=== PATIENT | female | born 1985 | race Caucasian/White ===

== ENCOUNTER 2024-01-09 07:43 | Observation (INO) ==
--- NOTE | 2024-01-05 11:03 | Anesthesiology Consultation ---
Date of Service January 05, 2024 Assessment & Plan (1) Encounter for pre-operative examination: - check EKG, BMP and urine test STAT am DOS. Fluid orders to anesthesiologist review of BMP DOS. - Case discussed in detail with Dr. Bruno who advised ordering EKG for DOS and that nothing additional is needed. - Per rail car operator on 01/05/24: No known infectious disease contacts, current infectious disease symptoms in past 10 days or COVID positive test result in the past 30 days. Chart Review Chart Review: Acceptable Risk for Surgery and Patient NOT seen in Pre Admission Testing History Surgery Operation Date: 01/09/24 11:40 Proposed Procedures p Laparoscopic Total Abdominal Hysterectomy, Bilateral Salpingectomy and Cystoscopy, Possible Laparotomy As Any Indicated Procedure - Wally Blackburn MD Height/Weight Height: 5 ft 4 in Weight: 81.647 kg Allergies Allergy/AdvReac Type Severity Reaction Status Date / Time azithromycin Allergy Unknown Rash Verified 01/05/24 10:19 doxycycline Allergy Unknown Rash Verified 01/05/24 10:19 Macrolide Antibiotics Allergy Unknown Rash Verified 01/05/24 10:19 pantoprazole AdvReac Unknown Vomiting Verified 01/05/24 10:19 Medications Home Medications Medication Instructions Recorded Confirmed Last Taken bupropion HCl 300 mg 24 hr tablet, 300 mg PO QAM 01/05/24 01/05/24 Unknown extended release (Wellbutrin XL) norethindrone acetate 5 mg tablet 5 mg PO QAM 01/05/24 01/05/24 Unknown sertraline 100 mg tablet 100 mg PO QAM 01/05/24 01/05/24 Unknown Past Medical History Medical History (Updated 01/05/24 @ 11:00 by Ginger Mosquera PA-C) Bigeminal rhythm hx- mild, no meds; has seen S cardio in past; discharged from cardio unless has issues Depression with anxiety Hx of reduction of closed fracture arm Past Surgical History Surgical History Hx of tonsillectomy Hx of wisdom tooth extraction Social History Smoking Status: Never smoker Do You Dip or Chew Tobacco: No Hx Alcohol Use: Yes Alcohol type: beer alcohol intake frequency: a few times a month Hx Substance Use: No substance use type: does not use
[~2024-01-09 07:43] MED LIST: MAGNESIUM CITRATE 296 ML/BTL PO SCH
[2024-01-09 08:34] LABS: Est GFR (African American) 89.2 ml/min; Potassium 3.9 mmol/L (3.5-5.1)
[2024-01-09 08:35] LABS: BUN Creatinine Ratio 8.5 (10-20); Creatinine Clr Calc Pharmacy 83.2 ml/min
[2024-01-09] MEDS: LACTATED RINGER'S 1,000 ML IV SCH ×2 (08:45→15:27)
[2024-01-09] MEDS ORDERED: HYDROmorphone INJ 1 MG/ML SYRINGE IV PRN (08:48)
[2024-01-09] MEDS ORDERED: ePHEDrine sulfate 50 MG/ML AMP IV PRN (08:48)
[2024-01-09] MEDS ORDERED: ATROPINE SULFATE 0.1 MG/ML 10ML SYR IV PRN (08:48)
[2024-01-09] MEDS ORDERED: fentaNYL citrate PF 100 MCG/2 ML VIAL IV PRN (08:48)
[2024-01-09] MEDS ORDERED: PROMETHAZINE HCL 6.25 MG in SODIUM CHLORIDE 0.9% 50 ML IV PRN (08:48)
[2024-01-09] MEDS ORDERED: NALOXONE HCL 0.4 MG/1 ML VIAL/CARP IV PRN (08:48)
[2024-01-09] MEDS ORDERED: MIDAZOLAM HCL 1 MG/ML 2ML VIAL ONE (09:29)
[2024-01-09] MEDS ORDERED: HYDROmorphone INJ 2 MG/ML SYR/VIAL ONE (09:29)
--- NOTE | 2024-01-09 10:34 | History & Physical Bridge Note ---
Date of Service January 09, 2024 History & Physical Bridge Note I have examined the patient, reviewed the History & Physical and in the interval since the performance of the History & Physical I have noted the following changes of clinical significance: no changes noted
[2024-01-09] MEDS: ceFAZolin 2000MG 2,000 MG/15 ML SYR IV SCH (11:04)
[2024-01-09] MEDS ORDERED: PROPOFOL IV EMULSION 10 MG/ML 20 ML VIAL IV ONE (11:15)
[2024-01-09] MEDS ORDERED: ONDANSETRON INJ 2 MG/ML 2 ML VIAL ONE (11:15)
[2024-01-09] MEDS ORDERED: LIDOCAINE 2% 2 ML VIAL/AMP(20MG/ML) INFIL ONE (11:15)
[2024-01-09] MEDS ORDERED: KETOROLAC 30 MG/ML VIAL ONE (11:15)
[2024-01-09] MEDS ORDERED: DEXAMETHASONE SOD INJ 4 MG/ML VIAL ONE (11:15)
[2024-01-09] MEDS ORDERED: PHENYLEPHRINE 100MCG/ML 10ML SYR IV ONE (11:29)
[2024-01-09] MEDS ORDERED: ROCURONIUM BROMIDE 10 MG/ML 5 ML VIAL IV ONE (12:14)
[2024-01-09] MEDS ORDERED: SUGAMMADEX SODIUM 200 MG/2 ML VIAL IV ONE (12:26)
[2024-01-09] MEDS: METHYLENE BLUE 0.5% 10 ML VIAL ONE (13:22)
[2024-01-09] MEDS: BUPIVACAINE/EPINEPHRINE 0.5% MPF 1:200,000 30 ML VIAL ONE (13:33)
[2024-01-09] MEDS ORDERED: oxyCODONE/ACETAMINOPHEN 5mg/325mg TAB PO PRN (13:49)
[2024-01-09] MEDS ORDERED: MAGNESIUM HYDROXIDE SUSP 30 ML UDC PO PRN (13:49)
[2024-01-09] MEDS ORDERED: ONDANSETRON INJ 2 MG/ML 2 ML VIAL IV PRN (13:49)
--- NOTE | 2024-01-09 14:03 | Operative Report ---
Post Operative Report Pre & Post Diagnosis Operation Date: 01/09/24 09:20 Pre-Op Diagnosis: Fibroid Uterus Post-Op Diagnosis: Fibroid Uterus I identified the patient and participated in the time-out.: Yes Procedure Operation Date: 01/09/24 09:20 Actual Procedures p Total Laparoscopic Hysterectomy, Bilateral Salpingectomy and Cystoscopy(Not Applicable) - Wally Blackburn MD Surgeon Wally Blackburn MD Inventory Worker Miguel Clark PA-C Estimated Blood Loss 20 Findings Consistent with Post-Op Diagnosis Normal female escutcheon no lesions in the vagina or cervix. Laparoscopic findings however showed uterus of about 10 weeks size there was a large mass coming off the uterus this mass appeared and looks like a fibroid. The large mass occupying the entire pelvics. Both ovaries and fallopian tubes appear grossly normal. Remainder of the pelvic abdominal exam is unremarkable. Fluids IVF; 1500ml Urine 200ml EBL; 20 ml Specimens Uterus with cervix and fluid and fibroids. Left and right fallopian tube. Drains None Anesthesia Type General Complications None Indications 38-year-old with fibroid uterus. Description of Procedure FINDINGS: DESCRIPTION OF PROCEDURE: The patient was prepped and draped in normal sterile fashion in the dorsal lithotomy position. Alexis catheter was placed without difficulty. An ZairgeincCanDiag uterine manipulator was placed in the uterus to help with colpotomy. Attention was paid to the abdominal part of the procedure where a supraumbilical incision was made and carried down to the fascia. Julian was used to grab the fascia. Veress needle was introduced into the abdomen at a 45-degree angle while tenting up the abdomen. Intra-abdominal placement was confirmed with a water-filled syringe. A water drop and suction test was performed. The abdomen was insufflated with CO2 gas. The Veress needle was removed and a 5 mm non bladed trocar was attached to a laparoscope was introduced into the abdomen under direct visualization. This was a non bladed trocar. Once inside the abdomen, laparoscope was repositioned. Inspection of the abdomen shows the fi ndings as dictated above. Three more accessory ports were placed, two 5 mm accessory ports were placed in the lower abdomen on the contralateral side, in addition, an 11 mm trocar was placed on the left upper quadrant. General inspection of the abdomen and pelvis was performed as dictated above. There was an adhesion of omentum to the umbilicus. This omentum was examined. There was no bowel in the omentum, so the LigaSure was passed through one of the contralateral port and dissection of the omentum from the abdominal wall was performed. There was good hemostasis. Left and right fallopian tubes, the ureters, uterosacrals, bowels, appendix were examined and identified. LigaSure was passed through the left accessory port. The fallopian tube was identified and grabbed 4 cm from the cornua of the uterus with the LigaSure and transected. This was followed by opening of the left anterior leaf of the broad ligament. This allowed for fenestration of the posterior left broad ligament. The mid-section of the left fallopian tube, utero-ovarian and meso-ovarian pedicles were transected as well. Same procedure was performed on the contralateral side. The anterior broad ligament dissection was carried to the mid-section of the vesicouterine peritoneum over the bladder using the Harmonic scalpel. Same procedure was carried out on the contralateral side. The posterior broad ligament peritoneum was carefully dissected also from both sides over the uterosacral arch in order to displace the ureters laterally. Using traction and countertraction, the Maryland retractor and irrigation probe was used to further dissect the bladder off the lower segment of the uterus. Bladder pillars and pubovesical fascia was dissected as well. Harmonic scalpel was used to obtain hemostasis where needed. Uterine manipulator was now palpable over the vaginal tissue. The right uterine pedicles were skeletonized and coagulated with the LigaSure. Good hemostasis was obtained. Same procedure was performed on the contralateral side. Cardinal ligaments were transected on both sides. Once good hemostasis was obtained, colpotomy was performed using the LigaSure hook from both sides. Uterus was removed through the vagina while still attached to the uterine manipulator. The rest of the fibroids however was too large to come out in 1 piece. It was dissected in pieces and removed through the vagina. The bulb was attached to the uterine manipulator was reinserted into the vagina to establish pneumoperitoneum. With a grasper, the remaining section of the left ovary and tube were positioned anteromedially. Both fallopian tubes tubes were removed and both ovaries left intactRemoval was done with LigaSure. EndoStitch closure device was passed through the 11 mm port on the left. Using the Maryland grasper for traction, colpotomy closure was performed. The uterosacral ligaments incorporated into the closure in order to decrease the risk of prolapse. Lapro ties were used with the EndoStitch. The 11-mm trocar site was closed with a Tray-Gunderson under direct visualization. Attention was paid to the cystoscopy part of the procedure where a cystoscope was introduced into the bladder. There are no sutures seen in the bladder. There were no gross blood seen in the bladder as well. The bubble sign is noted showing the bladder was a close cavity. Both ureters were seen and there was efflux from both uterus. The skin incisions are closed with Dermabond, except for the 11-mm trocar site, which was closed with 4-0 Monocryl. The patient was returned to recovery in stable condition. Inspection of the vagina shows the vaginal cuff was intact. All instruments were removed from the vagina and the bladder and accounted for x2. I Inventory Worker was necessary for retraction and manipulation of instruments in order to provide for a safe operationattest to the content of the Intraoperative Record and any orders documented therein. Any exceptions are noted below.
--- NOTE | 2024-01-09 14:12 | Anesthesiology Progress Note ---
Date of Service January 09, 2024 Anesthesia Post Procedure Vital Signs Vital Signs: Temp Pulse Pulse Resp BP Pulse Ox O2 Del Method 01/09/24 14:00 110 H 13 112/75 94 Room Air 01/09/24 13:50 106 H 10 L 119/72 95 Room Air 01/09/24 13:40 36.0 C L 109 H 12 115/80 93 Room Air 01/09/24 08:15 37.1 C 94 H 20 141/95 H 97 Room Air Transfer of Care Handoff Completed per policy Notes Mental Status: alert / awake / arousable and participated in evaluation Patient Amnestic to Procedure: Yes Nausea / Vomiting: adequately controlled Pain: adequately controlled Airway Patency, RR, SpO2: stable & adequate BP & HR: stable & adequate Hydration State: stable & adequate Anesthetic Complications: no major complications apparent and Pt Satisfied with anesthetic care
[2024-01-09] MEDS ORDERED: LORazepam 1 MG TAB PO PRN (15:15)
[2024-01-09] MEDS: KETOROLAC 30 MG/ML VIAL IV PRN (15:28)
[2024-01-09] MEDS: LORazepam 1 MG TAB PO STA (15:57)
--- NOTE | 2024-01-09 17:16 | Electrocardiogram Report ---
Test Reason : Blood Pressure : / mmHG Vent. Rate : 085 BPM Atrial Rate : 085 BPM P-R Int : 162 ms QRS Dur : 088 ms QT Int : 366 ms P-R-T Axes : 056 056 043 degrees QTc Int : 435 ms Sinus rhythm with occasional Premature ventricular complexes Possible Left atrial enlargement Borderline ECG No previous ECGs available Confirmed by Emeterio Jordan ([id number]) on 01/09/2024 5:16:05 PM Referred By: Wally Blackburn Confirmed By:Deangelo Jordan
[2024-01-09] MEDS: oxyCODONE/ACETAMINOPHEN 5mg/325mg TAB PO PRN (18:01)
[2024-01-09] MEDS: DOCUSATE SODIUM 100 MG CAP PO SCH (21:01)
--- OUTSIDE RECORDS SUMMARY | 2024-01-10 02:30 | External Medical Summary | Summary of Care ---
Author Name Unknown Organization [facility] Address [address] [place] [address] Phone [phone] Care Team Providers Care Assembler Fluorescent Lights Name Role Phone Unavailable Primary Care Provider Unavailabl e Encounter Details Date Type Department Care Team (Late st Contact Info) Description 01/05/2024 4:15 PM EDT Office Visit Gynecology/Obstetric s Giovanny Fernandez [address] [place] [address] Wally Blackburn MD [address] [place] [address] Preop testing*; Uterine leiomyoma, unspecified location Allergies Active Allergy Reactions Criticality Noted Date Comments Doxycycline Rash 09/16/2019 Macrolides And Ketolides 05/06/2008 rash Pantoprazole 04/27/2018 Itchiness all over, hand swelling documented as of this encounter (statuses as of 01/05/2024) Medications Medication Sig Dispensed Refills Start Date End Date Status fluticasone (FLONASE) 50 MCG/ACT nasal sprayIndications: Acute pharyngitis, unspecified etiology,Viral URI Administer 2 Sprays into each nostril daily. 1 Bottle 11 06/13/2018 Active Multivitamin Adult Oral Tablet Chewable Take by mouth. Active Retin-A 0.025 % External Cream Apply topically to affected area at bedtime. Apply to face 45 g 5 06/06/2022 Active Sertraline HCl 100 MG Oral Tablet (Zoloft)Indicatio ns:Moderate single current episode of major depressive disorder (HCC) Take 1 Tablet by mouth in the morning. 90 Tablet 3 08/14/2023 Active Norethindrone Acetate 5 MG Oral Tablet Take 1 Tablet by mouth in the morning. 90 Tablet 1 09/10/2023 Active buPROPion HCl ER (XL) 300 MG Oral Tablet Extended Release 24 Hour (Wellbutrin XL) Take 1 Tablet by mouth in the morning. 30 Tablet 5 11/20/2023 Active Magnesium Citrate Oral SolutionIndicatio ns:Preop testing Take 296 ml solution 5 PM the night before surgery 300 mL 01/05/2024 Active busPIRone HCl 10 MG Oral Tablet (Buspar)Indicatio ns:Mood changes Take 1 Tablet by mouth in the morning and 1 Tablet before bedtime. 20 Tablet 09/23/2023 01/05/2024 Discontinue d(Medicatio n List Clean Up) Hospital, Clinic, or Other Facility Administered Medication Ordered Dose Route Frequency Start Date End Date Status Leuprolide Acetate (3 Month) (Lupron) inj 11.25 mgIndications:Submuco us leiomyoma of uterus 11.25 mg IM [id number] 09/10/2023 01/05/2024 Discontinued documented as of this encounter (statuses as of 01/05/2024) Active Problems Problem Noted Date Diagnosed Date Acne vulgaris 06/11/2022 Moderate single current epis ode of major depressive disorder 11/22/2016 Chronic rhinitis 06/05/2014 ADVANCE DIRECTIVE INFORMATION 05/03/2005 Overview: No, Advance Directive brochure offered , patient declined. documented as of this encounter (statuses as of 01/05/2024) Resolved Problems Problem Noted Date Diagnosed Date Resolved Date Upper respiratory tract infection 01/29/2022 06/11/2022 Gastroesophageal reflux dise ase without esophagitis 03/16/2015 12/07/2020 Sinus congestion 06/05/2014 06/21/2015 Normal , first 07/08/201102/25 Condyloma acuminatum 014 Adjustment disorder with depressed mood 11/23/2013 documented as of this encounter (statuses as of 01/05/2024) Immunizations Name Administration Dates Next Due COVID-19 mRNA, LNP-s, No Pre serve, 2-Dose Series (ExactCost) 12/20/2020,11/29/2020 HPV Vaccine, 4-Valent 11/18/2007,07/15/2007,04/28 Season Influenza, Cell Cultu re, 18+ Yrs, With Preserv (Flucelvax) 05/09/2014 Seasonal Influenza, PF, 6 M & above, IM , (FluLaval or Fluzone) 07/08/2023,2022,06/08/2021,2019,06/02/2019,04/30/2018,06/26/2017 Seasonal Influenza, Quadriva lent, No Preserve, IM 07/09/2016,06/21/2015 Seasonal Influenza, Split, I IV3, With Preserve, Inj 05/04/2013,05/30/2011,05/11/2010,2006 TD, Preservative Free 06/11/2022 TDAP, Age 7 and older, IM (Adacel) 10/20/2009 documented as of this encounter Social History Tobacco Use Types Packs/Day Years Used Date Smoking Tobacco: Never Smokeless Tobacco: Never Alcohol Use Standard Drinks/Week Comments Yes 0 (1 standard drink = 0.6 oz pur e alcohol) PHQ-2 Answer Date Recorded PHQ Adult Total Score 0 06/11/2022 Hunger Vital Sign Answer Date Recorded Within the past 12 months, y ou worried that your food would run out before you got the money to buy more. Never true 01/27/20 23 Within the past 12 months, t he food you bought just didn't last and you didn't have money to get more. Never true 01/26/2023 Sex and Gender Information Value Date Recorded Sex Assigned at Not on file Gender Identity Not on file Sexual Orientation Not on file Job Start Date Occupation Industry Not on file Not on file Not on file Travel History Travel Start Travel End [employer] 12/27/2023 01/03/2024 documented as of this encounter Last Filed Vital Signs Vital Sign Reading Time Taken Comments Blood Pressure - - Pulse - - Temperature - - Respiratory Rate - - Oxygen Saturation - - Inhaled Oxygen Concentration - - Weight 80.7 kg (178 lb) 01/05/2024 4:18 PM EDT Height 162.6 cm (5' 4") 01/05/2024 4:18 PM EDT Body Mass Index 30.55 01/05/2024 4:18 PM EDT documented in this encounter Progress Notes * Wally Blackburn MD - 01/05/2024 4:53 PM EDT Pt here for preop History and physical examination done Consnet obtained documented in this encounter H&P Notes * Wally Blackburn MD - 01/05/2024 4:46 PM EDT Images from the original note were not included. 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 Denies h/o STDs and abnormal Paps. Her past medical/surgical histories and current medications are recorded in the electronic record. Past Surgical History: Procedure Laterality Date REMOVE TONSILS & ADENOIDS, UNDER 12 age 6 [facility], Family History Problem Relation Name Age of Onset Musculo-skeletal Disorder Mother scoliosis No Past Hx Father Thyroid Disorder Father graves dz Pulmonary Fibrosis Father No Past Hx Brother Diabetes Grandmother (Maternal) Type 2- no insulin Hypertension Grandmother (Maternal) Asthma Grandfather (Maternal) Diabetes Grandfather (Maternal) Type 2- no insulin Hypertension Grandfather (Maternal) Cancer Grandmother (Paternal) unsure of what type No Known Problems Son No Known Problems Son History Social History Socioeconomic History Marital status: Spouse name: Not on file Number of children: 2 Years of education: 12 Highest education level: Not on file Occupational History 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: [employer] Tobacco Use Smoking status: Never Smokeless tobacco: Never Vaping Use Vaping status: Never Used Substance and Sexual Activity Alcohol use: Yes Drug use: No Sexual activity: Yes Partners: Male control/protection: Pill, Condom, Surgical Other Topics Concern Service No Blood Transfusions No Caffeine Concern No Occupational Exposure No Hobby Hazards No Sleep Concern No Stress Concern No Weight Concern No Special Diet No Back Care No Exercise No Bike Helmet Not Asked Seat Belt Yes Self-Exams Yes Social History Narrative born in [place], life long resident Social Determinants of Health Financial Resource Strain: Not on file Food Insecurity: No Food Insecurity (01/26/2023) Hunger Vital Sign Worried About Running Out of Food in the Last Year: Never true Ran Out of Food in the Last Year: Never true Transportation Needs: Not on file Physical Activity: Not on file Stress: Not on file Social Connections: Not on file Intimate Partner Violence: Not on file Housing Stability: Not on file Pelvic sono Exam End Date Exam End Time 11/28/2023 2:56 PM US PELVIS TRANS-ABDOMINAL Order: [id number] Status: Final result Visible to patient: Yes (seen) Next appt: 01/09/2024 at 08:00 AM in Surgery (Wally Blackburn MD) Dx: Submucous leiomyoma of uterus 0 Result Notes Details Reading Physician Reading Date Result Priority Crispin Simms MD [phone] 11/29/2023 Narrative & Impression EXAM US PELVIS TRANS-VAGINAL NON-OB; US PELVIS TRANS-ABDOMINAL - 11/28/2023 2:56 pm HISTORY fibroid f/u TECHNIQUE Real-time transabdominal and transvaginal ultrasound of the pelvis was performed. COMPARISON 08/22/2023. FINDINGS The uterus measures 10 x 3.7 x 4.6 cm and is normal in size and echogenicity. There is a 15.7 x 6.7x 13.6 cm exophytic uterine leiomyoma. The endometrium appears unremarkable and measures 5 mm in thickness. The right ovary measures 2.3 x 1.9 x 2.4 cm and is unremarkable. The left ovary measures 2.4 x 2.1 x 1.8 cm and is unremarkable. There is no free fluid in the cul-de-sac. IMPRESSION IMPRESSION Large exophytic uterine leiomyoma. Physical Exam: Ht 1.626 m (5' 4") | Wt 80.7 kg (178 lb) | BMI 30.55 kg/m | BSA 1.91 m CV: S1, S2. Regular rate and Rhythm Lungs: Clear to auscultation bilaterally. Abdomen: Soft Extremities: Soft non tender calves bilaterally. A/P: 38 year old year old S/P fibroid uterus We have discussed the risk alternatives and complications of surgery including more surgery to correct complication,risk of anesthesia,infection,damage to internal organs and . We have also discussed the possibility that pt's present situation may not change. Pt is aware and wishes to proceed to surgery. Consent is signed Pt scheduled for the ff procedures 1. Total laparoscopic hysterectomy 2. Bilateral salpingectomy 4. Possible laparotomy Wally Blackburn MD 01/05/2024 4:47 PM documented in this encounter Nursing Notes * Arelis Aleman LPN - 01/05/2024 4:14 PM EDT Pt is here for pre-op for hysterectomy documented in this encounter Plan of Treatment Upcoming Encounters Date Type Department Care Team (Late st Contact Info) Description 01/19/2024 3:30 PM EDT Office Visit Gynecology/Obstetrics [address] [place] [address] Wally Blackburn MD [address] [place] [address] Scheduled Orders Name Type Priority Associated Diagnoses Orde r Schedule CBC WITH WBC DIFFERENTIAL Lab Routine Preop testing Ordered: 01/05/2024 COMPREHENSIVE METABOLIC PANEL Lab Routine Preop testing Ordered: 01/05/2024 Health Maintenance Due Date Last Done Comments Hepatitis B (1 of 3 - 19+ 3-dose series) 2004 COVID-19 Vaccine ( - 2022-24 season) 2023 12/20/2020, 11/29/2020 Depression Monitoring 06/11/2023 06/11/2022 Diabetes Screening 11/21/2025 11/21/2022, 1 08/11/2020, 12/05/2020, Additional history exists Pap Smear 08/14/2026 08/14/2023, 04/28, 07/14/2017, Additional history exists Cervical Cancer Screening 08/14/2028 HPV/Co-Test 08/14/2028 08/14/2023 DTaP,Tdap,and Td Vaccines (3 - Td or Tdap) 06/11/2032 06/11/2022, 10/20/2009 GARDASIL-HPV IMMUNIZATION SERIES Completed 11/18/2007, 07/15/2007, 05/20/2007 Hepatitis C Screening Completed 11/22/2016 Influenza Vaccine (FLU shot) Completed 06/2023, 2022, 06/08/2021, Additional history exists MENINGOCOCCAL (MENACTRA/MENVEO) Aged Out No longer eligible based on patient's age to complete this topic Pneumococcal Vaccine: Pediatrics (0 to 5 Years) and At-Risk Patients (6 to 64 Years) Aged Out No longer eligible based on patient's age to complete this topic documented as of this encounter Medical Devices Not on filedocumented as of this encounter Visit Diagnoses Diagnosis Preop testing- Primary Preoperative examination, unspecified Uterine leiomyoma, unspecified location documented in this encounter
--- OUTSIDE RECORDS SUMMARY | 2024-01-10 02:30 | External Medical Summary | Summary of Care ---
Author Name Unknown Organization [facility] Address [address] [place] [address] Phone [phone] Care Team Providers Care White Metal Corrosion Proofer Name Role Phone Unavailable Primary Care Provider Unavailabl e Reason for Visit * Reason Onset Date Comments Precert Approved 09/10/2023 Lupbertrand Encounter Details Date Type Department Care Team (Late st Contact Info) Description 09/10/2023 Telephone Gynecology/Obstetrics [facility] [address] [place] [address] Wally Blackburn MD [address] [place] [address] Precert Approved (Lupron ) Allergies Active Allergy Reactions Criticality Noted Date Comments Doxycycline Rash 09/16/2019 Macrolides And Ketolides 05/06/2008 rash Pantoprazole 04/27/2018 Itchiness all over, hand swelling documented as of this encounter (statuses as of 12/10/2023) Medications Medication Sig Dispensed Refills Start Date End Date Status fluticasone (FLONASE) 50 MCG/ACT nasal sprayIndications:Acu te pharyngitis, unspecified etiology,Viral URI Administer 2 Sprays into each nostril daily. 1 Bottle 11 06/13/2018 Active Multivitamin Adult Oral Tablet Chewable Take by mouth. 0 Active Retin-A 0.025 % External Cream Apply topically to affected area at bedtime. Apply to face 45 g 5 06/06/2022 Active Sertraline HCl 100 MG Oral Tablet (Zoloft)Indications: Moderate single current episode of major depressive disorder (HCC) Take 1 Tablet by mouth in the morning. 90 Tablet 3 08/14/2023 Active Norethindrone Acetate 5 MG Oral Tablet Take 1 Tablet by mouth in the morning. 90 Tablet 1 09/10/2023 Active Hospital, Clinic, or Other Facility Administered Medication Ordered Dose Route Frequency Start Date End Date Status Leuprolide Acetate (3 Month) (Lupron) inj 11.25 mgIndications:Submucous leiomyoma of uterus 11.25 mg IM [id number] 09/10/2023 03/08/2024 Activ e documented as of this encounter (statuses as of 12/10/2023) Active Problems Problem Noted Date Diagnosed Date Acne vulgaris 06/11/2022 Moderate single current epis ode of major depressive disorder 11/22/2016 Chronic rhinitis 06/05/2014 ADVANCE DIRECTIVE INFORMATION 05/03/2005 Overview: No, Advance Directive brochure offered , patient declined. documented as of this encounter (statuses as of 12/10/2023) Resolved Problems Problem Noted Date Diagnosed Date Resolved Date Upper respiratory tract infection 01/29/2022 06/11/2022 Gastroesophageal reflux dise ase without esophagitis 03/16/2015 12/07/2020 Sinus congestion 06/05/2014 06/21/2015 Normal , first 07/08/201102/25 Condyloma acuminatum 014 Adjustment disorder with depressed mood 11/23/2013 documented as of this encounter (statuses as of 12/10/2023) Immunizations Name Administration Dates Next Due COVID-19 mRNA, LNP-s, No Pre serve, 2-Dose Series ([employer]) 12/20/2020,11/29/2020 HPV Vaccine, 4-Valent 11/18/2007,07/15/2007,04/28 Season Influenza, Cell Cultu re, 18+ Yrs, With Preserv (Flucelvax) 05/09/2014 Seasonal Influenza, PF, 6 M & above, IM , (FluLaval or Fluzone) 07/08/2023,2022,06/08/2021,2019,06/02/2019,04/30/2018,06/26/2017 Seasonal Influenza, Quadriva lent, No Preserve, IM 07/09/2016,06/21/2015 Seasonal Influenza, Split, I IV3, With Preserve, Inj 05/04/2013,05/30/2011,05/11/2010,2006 TD, Preservative Free 06/11/2022 TDAP (age 11 and older)(Adacel) 10/20/2009 documented as of this encounter Social [...] file Not on file Not on file documented as of this encounter Miscellaneous Notes * Telephone Encounter - Afua Guerrero OSA - 09/15/2023 11:11 AM EST SEE REFERRAL MESSAGE * Telephone Encounter - Afua Guerrero OSA - 09/12/2023 10:00 AM EST REQ AUTH * Telephone Encounter - Arelis Aleman LPN - 09/10/2023 10:30 AM EST [facility] Pre-Cert Request Medication/Disease State Information: Medication: Leuprolide Acetate (Lupron) Lupron Depot 3 month - IM 11.25 mg every 3 months for 2 dose(s) Clinic Administered Medication - route pre-cert request to [id number] Diagnosis (including ICD-10): Leiomyomata of Uterus-D25.9 Medication(s) Tried/Failed/Contraindicated: none See corresponding visit note(s) for additional supporting clinical information. Office Information: Prescriber: Dr. Jairo Blackburn documented in this encounter Plan of Treatment Health Maintenance Due Date Last Done Comments Hepatitis B (1 of 3 - 19+ 3-dose series) 2004 COVID-19 Vaccine ( - 2022-24 season) 2023 12/20/2020, 11/29/2020 Diabetes Screening 11/21/2025 11/21/2022, 1 08/11/2020, 12/05/2020, [...] Not on filedocumented as of this encounter Additional Health Concerns Infection Onset Date Last Indicated Resolved Time ((Group A Strep) Strep pyoge mojgan) Comment:Outside of timeframe for normal disease process 01/27/2023 01/27/2023 11/21/2023 10:52 AM EDT documented as of this encounter
--- OUTSIDE RECORDS SUMMARY | 2024-01-10 02:30 | External Medical Summary | Summary of Care ---
Author Name Unknown Organization [facility] Address [address] [place] [address] Phone [phone] Care Team Providers Care Promotional Demonstrator Name Role Phone Unavailable Primary Care Provider Unavailabl e Reason for Visit * Reason Comments Outpatient Testing Encounter Details Date Type Department Care Team (Late st Contact Info) Description 01/05/2024 2:10 PM EDT Laboratory Laboratory, [facility] [address] [place] [id number] [facility] [address] [place] [address] Arrived Allergies Active Allergy Reactions Criticality Noted Date [...] the morning. 30 Tablet 5 11/20/2023 Active documented as of this encounter (statuses as [...] mRNA, LNP-s, No Pre serve, 2-Dose Series ([employer]) 12/20/2020,11/29/2020 HPV Vaccine, 4-Valent 11/18/2007,07/15/2007,04/28 Season Influenza, [...] file Travel History Travel Start Travel End [place] 12/27/2023 01/03/2024 documented as of this encounter Plan of Treatment Upcoming Encounters Date Type Department Care Team (Late st Contact Info) Description 01/19/2024 3:30 PM EDT [facility] [address] [facility] [place] [address] Wally Blackburn MD [address] [facility] [place] [address] Health Maintenance Due Date Last Done Comments Hepatitis B (1 of 3 - 19+ 3-dose series) 2004 COVID-19 Vaccine ( season) 2023 12/20/2020, 11/29/2020 Depression Monitoring 06/11/2023 06/11/2022 Diabetes Screening 11/21/2025 11/21/2022, 1 08/11/2020, 12/05/2020, Additional history exists Pap Smear 08/14/2026 08/14/2023, 1009/2019, 07/14/2017, Additional history exists Cervical Cancer Screening [...]
--- OUTSIDE RECORDS SUMMARY | 2024-01-10 02:30 | External Medical Summary ---
Author Name Unknown Address Unknown Organization K01:[facility] - [address] [place] [address] Laboratory Report Ordering Provider Test Date Status RYAN DAMON 01/05/2024 16:58:15 Final Observation Date Value Abnormality Reference (Units ) Status BUN 01/05/2024 16:58:15 6 6-20 (mg/dL) Final Creatinine 01/05/2024 16:58:15 0.9 0.5-1.0 (mg/dL) Final Glomerular filtration rate/1.73 sq M.predicted [Volume Rate/Area] in Serum, Plasma or Blood by Creatinine-based formula (CKD-EPI) 01/05/2024 16:58:15 80 >=60 (mL/min) Final eGFR is calculated based on the CKD-EPI 2020 equation Sodium 01/05/2024 16:58:15 140 135-146 (m mol/L) Final Potassium 01/05/2024 16:58:15 3.8 3.5-5.1 (m mol/L) Final Cl 01/05/2024 16:58:15 104 98-107 (mm ol/L) Final CO2 01/05/2024 16:58:15 24 22-32 (mmo l/L) Final Anion gap 01/05/2024 16:58:15 12 7-15 (mmol /L) Final Glucose 01/05/2024 16:58:15 90 70-120 (mg /dL) Final Albumin 01/05/2024 16:58:15 4.8 3.8-5.0 (g /dL) Final AST (Aspartate aminotransferase) 01/05/2024 16:58:15 18 10-35 (U/L) Final Alk Phos 01/05/2024 16:58:15 64 35-130 (U/ L) Final Bilirubin, Total 01/05/2024 16:58:15 0.9 <=1 .2 (mg/dL) Final Calcium 01/05/2024 16:58:15 9.3 8.4-10.2 ( mg/dL) Final Protein 01/05/2024 16:58:15 7.0 6.0-8.3 (g /dL) Final ALT (Alanine aminotransferase) 01/05/2024 16:58:15 19 10-35 (U/L) Final Performing Location [facility] - [address] [facility] [address]
--- OUTSIDE RECORDS SUMMARY | 2024-01-10 02:30 | External Medical Summary | Summary of Care ---
Author Name Unknown Organization [facility] Address [address] [place] [address] Phone [phone] Care Team Providers Care Smash Piecer Name Role Phone Unavailable Primary Care Provider Unavailabl e Reason for Visit * Reason Comments Acute Encounter Details Date Type Department Care Team (Late st Contact Info) Description 11/20/2023 11:20 AM EDT Telemedicine Family Practice [facility] [address] [place] [address] Jaycee Austin PA-C [address] [place] [address] Adjustment disorder with depressed mood* Allergies Active Allergy Reactions Criticality Noted Date Comments Doxycycline Rash 09/16/2019 Macrolides And Ketolides 05/06/2008 rash Pantoprazole 04/27/2018 Itchiness all over, hand swelling documented as of this encounter (statuses as of 11/20/2023) Medications Medication Sig Dispensed Refills Start Date [...] the morning. 90 Tablet 1 09/10/2023 Active busPIRone HCl 10 MG Oral Tablet (Buspar)Indicatio ns:Mood changes Take 1 Tablet by mouth in the morning and 1 Tablet before bedtime. 20 Tablet 0 09/23/2023 Active buPROPion HCl ER (XL) 300 MG Oral Tablet Extended Release 24 Hour (Wellbutrin XL) Take 1 Tablet by mouth in the morning. 30 Tablet 5 11/20/2023 Active buPROPion HCl ER (XL) 150 MG Oral Tablet Extended Release 24 Hour (Wellbutrin XL) Take 1 Tablet by mouth in the morning. 30 Tablet 5 10/20/2023 Discontinued Hospital, Clinic, or Other Facility Administered Medication Ordered Dose Route Frequency Start Date End Date Status Leuprolide Acetate (3 Month) (Lupron) inj 11.25 mgIndications:Submucous leiomyoma of uterus 11.25 mg IM [id number] 09/10/2023 03/08/2024 Activ e documented as of this encounter (statuses as of 11/20/2023) Active Problems Problem Noted Date Diagnosed Date Acne vulgaris 06/11/2022 Moderate single current epis ode of major depressive disorder 11/22/2016 Chronic rhinitis 06/05/2014 ADVANCE DIRECTIVE INFORMATION 05/03/2005 Overview: No, Advance Directive brochure offered , patient declined. documented as of this encounter (statuses as of 11/20/2023) Resolved Problems Problem Noted Date Diagnosed Date Resolved Date Upper respiratory tract infection 01/29/2022 06/11/2022 Gastroesophageal reflux dise ase without esophagitis 03/16/2015 12/07/2020 Sinus congestion 06/05/2014 06/21/2015 Normal , first 07/08/201102/25 Condyloma acuminatum 014 Adjustment disorder with depressed mood 11/23/2013 documented as of this encounter (statuses as of 11/20/2023) Immunizations Name Administration Dates Next Due COVID-19 mRNA, LNP-s, No Pre serve, 2-Dose Series ([employer]) 12/20/2020,11/29/2020 HPV Vaccine, 4-Valent 11/18/2007,07/15/2007,04/28 Season Influenza, [...] on file documented as of this encounter Progress Notes * Jaycee Austin PA-C - 11/20/2023 11:52 AM EDT Images from the original note were not included. Patient location: HOME. I was in a hospital or clinic location. After connecting through televideo,patient was verified with two unique identifiers. Patient (or authorized legal instruments sales representative) was then informed that this was a Telemedicine visit and being conducted confidentially over secure lines. Methods to assure confidentiality were taken. Patient acknowledged consent and understanding of pr ivacy and security of the Telemedicine visit. The patient agreed to participate. History of Present Illness Yue Anderson is a 38 year old female that presents for Acute Patient is A 38 year old female who presents for a follow up on depression medications. Has a large fibroid and is being given lupron. Has had one shot and is in menopause. She notes change; feels more depressed, increased anxiety, feels trapped. In the past tried higher zoloft and diminished sex drive. Appetite good Sleep fair Concentration good Interest diminished Has mood swings No suicidal or homicidal ideation. Physical Exam There were no vitals filed for this visit. General: alert, healthy, no distress, well nourished, well developed, and cooperative Head: Normocephalic, No masses, lesions, tenderness or abnormalities Eye Exam: PERRLA, extraocular movements intact, conjunctiva are pink and non- injected, sclera clear Lungs: chest symmetric with normal AP diameter, no chest deformities noted, normal respiratory rateand rhythm, diaphragmatic excursion normal Neuro Exam: alert & oriented x 3 with fluent speech, no focal motor/sensory deficits I have reviewed the following results: None Assessment and Plan Adjustment disorder with depressed mood (Primary) Other orders - buPROPion HCl ER (XL) 300 MG Oral Tablet Extended Release 24 Hour (Wellbutrin XL); Take 1 Tablet by mouth in the morning. Wrap-Up Time: I spent a total of 20-29 minutes (exact time 21 mins) on the date of service in preparation, delivery, and documentation of the care provided to Yue Abraham excluding any time spent in theperformance of separately billed services. Telemedicine: Patient location: HOME. I was in a hospital or clinic location. After connecting through televideo,patient was verified with two unique identifiers. Patient (or authorized legal instruments sales representative) was then informed that this was a Telemedicine visit and being conducted confidentially over secure lines. Methods to assure confidentiality were taken. Patient acknowledged consent and understanding of pr ivacy and security of the Telemedicine visit. The patient agreed to participate. documented in this encounter Nursing Notes * Kait Moulton LPN - 11/20/2023 11:35 AM EDT Patient wanting to discuss anti depressants today. Was put on Lupron shot for fibroids. Needing hysterectomy done but dealing with everything has her in a funk and needing to adjust her meds documented in this encounter Plan of Treatment Health Maintenance Due Date Last Done Comments Hepatitis B (1 of 3 - 19+ 3-dose series) 2004 COVID-19 Vaccine (3 - 2022-24 season) 2023 12/20/2020, 11/29/2020 Diabetes [...] as of this encounter Visit Diagnoses Diagnosis Adjustment disorder with depressed mood- Primary documented in this encounter Additional Health Concerns Infection Onset Date Last Indicated Resolved Time ((Group A Strep) Strep pyogenes) 01/27/2023 01/28/20 23 documented as of this encounter
--- OUTSIDE RECORDS SUMMARY | 2024-01-10 02:30 | External Medical Summary | Summary of Care ---
Author Name Unknown Organization [facility] Address [address] [place] [address] Phone [phone] Care Team Providers Care Service Agent Name Role Phone Unavailable Primary Care Provider Unavailabl e Encounter Details Date Type Department Care Team (Late st Contact Info) Description 11/26/2023 Telephone Gynecology/Obstetrics [facility] [address] [facility] [place] [address] Wally Blackburn MD [address] [place] [address] Allergies Active Allergy Reactions Criticality Noted Date Comments Doxycycline Rash 09/16/2019 Macrolides And Ketolides 05/06/2008 rash Pantoprazole 04/27/2018 Itchiness all over, hand swelling documented as of this encounter (statuses as of 11/27/2023) Medications Medication Sig Dispensed Refills Start Date [...] Active busPIRone HCl 10 MG Oral Tablet (Buspar)Indications: Mood changes Take 1 Tablet by mouth in the morning and 1 Tablet before bedtime. 20 Tablet 0 09/23/2023 Active buPROPion HCl ER (XL) 300 MG Oral Tablet Extended Release 24 Hour (Wellbutrin XL) Take 1 Tablet by mouth in the morning. 30 Tablet 5 11/20/2023 Active Hospital, Clinic, or Other Facility Administered Medication Ordered Dose Route Frequency Start Date End Date Status Leuprolide Acetate (3 Month) (Lupron) inj 11.25 mgIndications:Submucous leiomyoma of uterus 11.25 mg IM [id number] 09/10/2023 03/08/2024 Activ e documented as of this encounter (statuses as of 11/27/2023) Active Problems Problem Noted Date Diagnosed Date Acne vulgaris 06/11/2022 Moderate single current epis ode of major depressive disorder 11/22/2016 Chronic rhinitis 06/05/2014 ADVANCE DIRECTIVE INFORMATION 05/03/2005 Overview: No, Advance Directive brochure offered , patient declined. documented as of this encounter (statuses as of 11/27/2023) Resolved Problems Problem Noted Date Diagnosed Date Resolved Date Upper respiratory tract infection 01/29/2022 06/11/2022 Gastroesophageal reflux dise ase without esophagitis 03/16/2015 12/07/2020 Sinus congestion 06/05/2014 06/21/2015 Normal , first 07/08/201102/25 Condyloma acuminatum 014 Adjustment disorder with depressed mood 11/23/2013 documented as of this encounter (statuses as of 11/27/2023) Immunizations Name Administration Dates Next Due COVID-19 mRNA, LNP-s, No Pre serve, 2-Dose Series ([employer]) 12/20/2020,11/29/2020 HPV Vaccine, 4-Valent 11/18/2007,07/15/2007,04/28 Season Influenza, [...] encounter Miscellaneous Notes * Telephone Encounter - Eva William MED ASSIST - 11/27/2023 7:59 AM EDT Ultrasound scheduled * Telephone Encounter - Aletha Walsh LPN - 11/26/2023 2:22 PM EDT Patient sent myg stating she does not want to do any further lupron injections. Has 20cm fibroid, Dr Blackburn wanted at least 3 months of Lupron in hopes of shrinking the fibroid to preserve blood loss during surgery. Reviewed with Dr Blackburn, he wants patient to repeat imaging first. Orders placed, Eva can you help her schedule. documented in this encounter Plan of Treatment Upcoming Encounters Date Type Department Care Team (Late st Contact Info) Description 11/28/2023 12:00 PM EDT Imaging Radiology [facility] [address] [facility] [place] [address] 11/28/2023 1:45 PM EDT Imaging Radiology [facility] [address] [facility] [place] [address] Scheduled Orders Name Type Priority Associated Diagnoses Orde r Schedule US PELVIS TRANS-VAGINAL NON-OB Medical Imaging Routine Submucous leiomyoma of uterus Ordered: 11/26/2023 US PELVIS TRANS-ABDOMINAL LIMITED Medical Imaging Routine Submucous leiomyoma of uterus Expected: 11/26/2023, Expires: 12/26/2024 Health Maintenance Due Date Last Done Comments Hepatitis B (1 of 3 - 19+ 3-dose series) 2004 COVID-19 Vaccine (2022- season) 2023 12/20/2020, 11/29/2020 Diabetes Screening 11/21/2025 [...] as of this encounter Visit Diagnoses Diagnosis Submucous leiomyoma of uterus- Primary documented in this encounter
--- OUTSIDE RECORDS SUMMARY | 2024-01-10 02:30 | External Medical Summary | Summary of Care ---
Author Name Unknown Organization [facility] Address [address] [place] [address] Phone [phone] Care Team Providers Care Repeater Operator Name Role Phone Unavailable Primary Care Provider Unavailabl e Reason for Visit * Reason Comments Clinical Research Director Return Encounter Details Date Type Department Care Team (Late st Contact Info) Description 12/04/2023 1:00 PM EDT Office Visit Gynecology/Obstetric s [facility] [address] [place] [address] Wally Blackburn MD [address] [place] [address] Uterine leiomyoma, unspecified location* Allergies Active Allergy Reactions Criticality Noted Date Comments Doxycycline Rash 09/16/2019 Macrolides And Ketolides 05/06/2008 rash Pantoprazole 04/27/2018 Itchiness all over, hand swelling documented as of this encounter (statuses as of 12/26/2023) Medications Medication Sig Dispensed Refills Start Date [...] 1 Tablet before bedtime. 20 Tablet 09/23/2023 Active buPROPion HCl ER (XL) 300 MG Oral Tablet Extended Release 24 Hour (Wellbutrin XL) Take 1 Tablet by mouth in the morning. 30 Tablet 5 11/20/2023 Active Hospital, Clinic, or Other Facility Administered Medication Ordered Dose Route Frequency Start Date End Date Status Leuprolide Acetate (3 Month) (Lupron) inj 11.25 mgIndications:Submucous leiomyoma of uterus 11.25 mg IM [id number] 09/10/2023 03/08/2024 Activ e documented as of this encounter (statuses as of 12/26/2023) Active Problems Problem Noted Date Diagnosed Date Acne vulgaris 06/11/2022 Moderate single current epis ode of major depressive disorder 11/22/2016 Chronic rhinitis 06/05/2014 ADVANCE DIRECTIVE INFORMATION 05/03/2005 Overview: No, Advance Directive brochure offered , patient declined. documented as of this encounter (statuses as of 12/26/2023) Resolved Problems Problem Noted Date Diagnosed Date Resolved Date Upper respiratory tract infection 01/29/2022 06/11/2022 Gastroesophageal reflux dise ase without esophagitis 03/16/2015 12/07/2020 Sinus congestion 06/05/2014 06/21/2015 Normal , first 07/08/201102/25 Condyloma acuminatum 014 Adjustment disorder with depressed mood 11/23/2013 documented as of this encounter (statuses as of 12/26/2023) Immunizations Name Administration Dates Next Due COVID-19 mRNA, LNP-s, No Pre serve, 2-Dose Series ([employer] 12/20/2020,11/29/2020 HPV Vaccine, 4-Valent 11/18/2007,07/15/2007,04/28 Season Influenza, [...] on file documented as of this encounter Last Filed Vital Signs Vital Sign Reading Time Taken Comments Blood Pressure - - Pulse - - Temperature - - Respiratory Rate - - Oxygen Saturation - - Inhaled Oxygen Concentration - - Weight 81.6 kg (180 lb) 12/04/2023 1:01 PM EDT Height 162.6 cm (5' 4") 12/04/2023 1:01 PM EDT Body Mass Index 30.9 12/04/2023 1:01 PM EDT documented in this encounter Progress Notes * Wally Blackburn MD - 12/26/2023 12:52 PM EDT Patient is a follow-up from last visit. Patient was seen with fibroid uterus was given Lupron patient patient has returned today to evaluate status of her fibroid. Patient does not wish to continue on Lupron enema because she reports a menopausal symptoms to severe for her to continue Lupron she wishes to proceed with hysterectomy sooner done initially plan. Ultrasound is reviewed with the patient there was a change in size of the fibroid noted. Paperwork is sent for scheduling of hysterectomy. documented in this encounter Nursing Notes * Arelis Aleman LPN - 12/04/2023 1:00 PM EDT Pt is here to discuss surgery documented in this encounter Plan of Treatment Upcoming Encounters Date Type Department Care Team (Late st Contact Info) Description 01/05/2024 4:15 PM EDT Office Visit Gynecology/Obstetrics [facility] [address] [place] [address] Wally Blackburn MD [address] [place] [address] 01/19/2024 3:30 PM EDT Office Visit Gynecology/Obstetrics [facility] [address] [place] [address] Wally Blackburn MD [address] [place] [address] Health Maintenance Due Date Last Done Comments [...] as of this encounter Visit Diagnoses Diagnosis Uterine leiomyoma, unspecified location- Primary documented in this encounter
--- OUTSIDE RECORDS SUMMARY | 2024-01-10 02:30 | External Medical Summary | Summary of Care ---
Author Name Unknown Organization [facility] Address [address] [place] [address] Phone [phone] Care Team Providers Care Public Health Worker Name Role Phone Unavailable Primary Care Provider Unavailabl e Encounter Details Date Type Department Care Team (Late st Contact Info) Description 01/05/2024 4:15 PM EDT Office Visit Gynecology/Obstetric s Giovanny Fernandez [address] [place] [address] Wally Blackburn MD [address] [place] [address] Preop testing*; Uterine leiomyoma, unspecified location Allergies [...] us leiomyoma of uterus 11.25 mg IM [id number] 09/10/2023 01/05/2024 Discontinued documented as of this [...] mRNA, LNP-s, No Pre serve, 2-Dose Series ([employer]) 12/20/2020,11/29/2020 HPV Vaccine, 4-Valent 11/18/2007,07/15/2007,04/28 Season Influenza, [...] file Travel History Travel Start Travel End [place] 12/27/2023 01/03/2024 documented as of this encounter [...] from the original note were not included. [address] [address] Appt line [phone] Yue Anderson is a 38 year old [...] Del Comments GA Length Weight Type Site Hospital Account Liaison History: Menstrual Index: // days. 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 Tobacco Use Smoking status: Never Smokeless [...] Self-Exams Yes Social History Narrative born in [place], life long resident Social Determinants of Health [...] 11/28/2023 2:56 PM US PELVIS TRANS-ABDOMINAL Order: [id number] Status: Final result Visible to patient: Yes (seen) Next appt: 01/09/2024 at 08:00 AM in Surgery (Wally Blackburn MD) Dx: Submucous leiomyoma of uterus 0 Result Notes Details Reading Physician Reading Date Result Priority Crispin Simms MD [phone] 11/29/2023 Narrative & Impression EXAM US PELVIS [...] 01/19/2024 3:30 PM EDT Office Visit Gynecology/Obstetrics [address] [place] [address] Wally Blackburn MD [address] [place] [address] Pending Results Name Type Priority Associated Diagnoses Date /Time CBC WITH WBC DIFFERENTIAL Lab Routine Preop testing 01/05/2024 4:58 PM EDT COMPREHENSIVE METABOLIC PANEL Lab Routine Preop testing 01/05/2024 4:58 PM EDT CBC Lab Routine Preop testing 01/05/2024 4:58 PM EDT DIFFERENTIAL, AUTOMATED Lab Routine Preop testing 01/05/2024 4:58 PM EDT Health Maintenance Due Date Last Done Comments Hepatitis B (1 of - 19+ 3-dose series) 2004 COVID-19 Vaccine [...]
--- OUTSIDE RECORDS SUMMARY | 2024-01-10 02:30 | External Medical Summary ---
Author Name Unknown Address Unknown Organization [id number]:LABORATORY [facility] - [address] [facility] [address] Laboratory Report Ordering Provider Test Date Status RYAN DAMON 01/05/2024 16:58:15 Final Observation Date Value Abnormality Reference (Units ) Status SYNC LEUKOCYTES IN BLOOD BY AUTOMATED COUNT 01/05/2024 16:58:15 7.70 4.00-10.80 (K/uL) Final Segs 01/05/2024 16:58:15 43.7 40.0-75.0 (%) Final Lymphs % 01/05/2024 16:58:15 45.6 Above high normal 18.0-42.0 (%) Final Monos 01/05/2024 16:58:15 7.3 1.0-11.0 (%) Final Eosinophils 01/05/2024 16:58:15 2.5 0.0-6.0 (%) Final Basos 01/05/2024 16:58:15 0.8 0.0-2.0 (%) Final Immature Granulocyte, Percent 01/05/2024 16:58:15 0.1 0.0-2.0 (%) Final Absolute Segs 01/05/2024 16:58:15 3.37 1.80-7.70 (K/uL) Final Lymphs, absolute 01/05/2024 16:58:15 3.51 1.00-4.80 (K/ul) Final Monos, Abs 01/05/2024 16:58:15 0.56 0.00-1.10 (K/uL) Final Eos, Abs 01/05/2024 16:58:15 0.19 0.00-0.70 (K/uL) Final Basos, Abs 01/05/2024 16:58:15 0.06 0.00-0.20 (K/uL) Final Immature Granulocytes, Number 01/05/2024 16:58:15 0.01 0.00-0.20 (K/uL) Final Performing Location LAB[facility]ATORY [facility] - [address] [facility] [address]
--- OUTSIDE RECORDS SUMMARY | 2024-01-10 02:30 | External Medical Summary ---
Author Name Unknown Address Unknown Organization K01:LABORATORY [facility] - [address] [facility] [address] [facility] [address] Laboratory Report Ordering Provider Test Date Status RYAN DAMON 01/05/2024 16:58:15 Final Observation Date Value Abnormality Reference (Units ) Status WBC, Total 01/05/2024 16:58:15 7.70 4.00-10.80 (K/uL) Final RBC 01/05/2024 16:58:15 4.84 3.85-5.15 (M/uL) Final Hemoglobin 01/05/2024 16:58:15 15.2 12.0-15.3 (g/dL) Final HCT 01/05/2024 16:58:15 44.7 36.0-45.2 (%) Final MCV 01/05/2024 16:58:15 92.4 81.5-97.5 (fL) Final MCH 01/05/2024 16:58:15 31.4 27.0-34.0 (pg) Final MCHC 01/05/2024 16:58:15 34.0 32.0-36.0 (g/dL) Final RDW 01/05/2024 16:58:15 11.9 11.5-15.5 (%) Final Platelets 01/05/2024 16:58:15 303 140-400 (K/uL) Final MPV 01/05/2024 16:58:15 10.0 6.6-11.1 (fL) Final Nucleated erythrocytes/100 leukocytes [Ratio] in Blood by Automated count 01/05/2024 16:58:15 0 <=0 (/100 WBCs) Final Performing Location LABORATORY [facility] - [address] [place] [address]
--- OUTSIDE RECORDS SUMMARY | 2024-01-10 02:30 | External Medical Summary | Summary of Care ---
Author Name Unknown Organization [facility] Address [address] [place] [address] Phone [phone] Care Team Providers Care Charger Operator Helper Name Role Phone Unavailable Primary Care Provider Unavailabl e Reason for Visit * Reason Onset Date Comments Medication Refill 10/19/2023 Encounter Details Date Type Department Care Team (Late st Contact Info) Description 10/19/2023 Refill Family Practice [facility] [address] [facility] [place] [address] Jaycee Austin PA-C [address] [place] [address] Allergies Active Allergy Reactions Criticality Noted Date Comments Doxycycline Rash 09/16/2019 Macrolides And Ketolides 05/06/2008 rash Pantoprazole 04/27/2018 Itchiness all over, hand swelling documented as of this encounter (statuses as of 10/20/2023) Medications Medication Sig Dispensed Refills Start Date [...] 0 09/23/2023 Active buPROPion HCl ER (XL) 150 MG Oral Tablet Extended Release 24 Hour (Wellbutrin XL) Take 1 Tablet by mouth in the morning. 30 Tablet 5 10/20/2023 Active buPROPion HCl ER (XL) 150 MG Oral Tablet Extended Release 24 Hour (Wellbutrin XL) Take 1 Tablet by mouth in the morning. 30 Tablet 5 05/07/2023 10/19/2023 Discontinue d(Refill) Hospital, Clinic, or Other Facility Administered Medication Ordered Dose Route Frequency Start Date End Date Status Leuprolide Acetate (3 Month) (Lupron) inj 11.25 mgIndications:Submucous leiomyoma of uterus 11.25 mg IM [id number] 09/10/2023 03/08/2024 Activ e documented as of this encounter (statuses as of 10/20/2023) Active Problems Problem Noted Date Diagnosed Date Acne vulgaris 06/11/2022 Moderate single current epis ode of major depressive disorder 11/22/2016 Chronic rhinitis 06/05/2014 ADVANCE DIRECTIVE INFORMATION 05/03/2005 Overview: No, Advance Directive brochure offered , patient declined. documented as of this encounter (statuses as of 10/20/2023) Resolved Problems Problem Noted Date Diagnosed Date Resolved Date Upper respiratory tract infection 01/29/2022 06/11/2022 Gastroesophageal reflux dise ase without esophagitis 03/16/2015 12/07/2020 Sinus congestion 06/05/2014 06/21/2015 Normal , first 07/08/201102/25 Condyloma acuminatum 014 Adjustment disorder with depressed mood 11/23/2013 documented as of this encounter (statuses as of 10/20/2023) Immunizations Name Administration Dates Next Due COVID-19 mRNA, LNP-s, No Pre serve, 2-Dose Series ([employer]) 12/20/2020,11/29/2020 HPV Vaccine, 4-Valent 11/18/2007,07/15/2007,04/28 Season Influenza, [...] encounter Miscellaneous Notes * Telephone Encounter - Lauren Arciniega [facility] - 10/20/2023 1:38 PM EDT Signed Prescriptions: Disp Refills buPROPion HCl ER (XL) 150 MG Oral Tablet E*30 Tab*5 Sig: Take 1 Tablet by mouth in the morning.Authorizing Provider: JAYCEE A[place]IN AOrdering User: LAUREN ARCINIEGA documented in this encounter Plan of Treatment Health Maintenance Due Date Last Done Comments Hepatitis B (1 of 3 - 19+ 3-dose series) 2004 COVID-19 Vaccine (3 - 2022-24 season) 2023 12/20/2020, 11/29/2020 Depression Screening 06/11/2023 06/11/2022 Diabetes Screening 11/21/2025 11/21/2022, 1 [...]
--- OUTSIDE RECORDS SUMMARY | 2024-01-10 02:31 | External Medical Summary | Summary of Care ---
Author Name Unknown Organization [facility] Address [address] [place] [address] Phone [phone] Care Team Providers Care Automobile Brakes Bonder Name Role Phone Unavailable Primary Care Provider Unavailabl e Reason for Visit * Reason Comments Editor School Photograph New * Evaluate & Treat - Unlimited Visits (Within 30 days (routine)) - Pending Review Specialty Diagnoses / Procedures Referred By Temo samson Referred To Contact Obstetrics/Gynecology / Gynecology Obstetrics Diagnoses Uterine leiomyoma, unspecified location Jaycee Austin PA-C [address] [place] [address] Referral ID Status Reason Start Date Expiration Date Visits Requested Visits Authorized [id number] Pending Review Specialty Services Required 09/02/[phone] Encounter Details Date Type Department Care Team (Late st Contact Info) Description 09/10/2023 10:00 AM EST Office Visit Gynecology/Obstetric s Giovanny Fernandez [address] [place] [address] Wally Blackburn MD [address] [place] [address] Submucous leiomyoma of uterus* Allergies Active Allergy Reactions Criticality Noted Date Comments Doxycycline Rash 09/16/2019 Macrolides And Ketolides 05/06/2008 rash Pantoprazole 04/27/2018 Itchiness all over, hand swelling documented as of this encounter (statuses as of 09/10/2023) Medications Medication Sig Dispensed Refills Start Date End Date Status fluticasone (FLONASE) 50 MCG/ACT nasal sprayIndications:Acu te pharyngitis, unspecified etiology,Viral URI Administer 2 Sprays into each nostril daily. 1 Bottle 11 06/13/2018 Active Multivitamin Adult Oral Tablet Chewable Take by mouth. 0 Active Retin-A 0.025 % External Cream Apply topically to affected area at bedtime. Apply to face 45 g 5 06/06/2022 Active buPROPion HCl ER (XL) 150 MG Oral Tablet Extended Release 24 Hour (Wellbutrin XL) Take 1 Tablet by mouth in the morning. 30 Tablet 5 05/07/2023 Active Sertraline HCl 100 MG Oral Tablet [...] mgIndications:Submucous leiomyoma of uterus 11.25 mg IM [id number] 09/10/2023 03/08/2024 Activ e documented as of this encounter (statuses as of 09/10/2023) Active Problems Problem Noted Date Diagnosed Date Acne vulgaris 06/11/2022 Moderate single current epis ode of major depressive disorder 11/22/2016 Chronic rhinitis 06/05/2014 ADVANCE DIRECTIVE INFORMATION 05/03/2005 Overview: No, Advance Directive brochure offered , patient declined. documented as of this encounter (statuses as of 09/10/2023) Resolved Problems Problem Noted Date Diagnosed Date Resolved Date Upper respiratory tract infection 01/29/2022 06/11/2022 Gastroesophageal reflux dise ase without esophagitis 03/16/2015 12/07/2020 Sinus congestion 06/05/2014 06/21/2015 Normal , first 07/08/201102/25 Condyloma acuminatum 014 Adjustment disorder with depressed mood 11/23/2013 documented as of this encounter (statuses as of 09/10/2023) Immunizations Name Administration Dates Next Due COVID-19 mRNA, LNP-s, No Pre serve, 2-Dose Series ([employer]) 12/20/2020,11/29/2020 HPV Vaccine, 4-Valent 11/18/2007,07/15/2007,04/28 Season Influenza, [...] Sign Reading Time Taken Comments Blood Pressure 120/68 09/10/2023 9:54 AM EST Pulse - - Temperature - - Respiratory Rate - - Oxygen Saturation - - Inhaled Oxygen Concentration - - Weight 82.1 kg (181 lb) 09/10/2023 9:54 AM EST Height 162.6 cm (5' 4") 09/10/2023 9:54 AM EST Body Mass Index 31.07 09/10/2023 9:54 AM EST documented in this encounter Progress Notes * Wally Blackburn MD - 09/10/2023 10:30 AM EST /Patient Name: Yue Cantu Patient CC: fibroid uterus Context: (HPI) 38 year old seen by PCP for pelvic and abdominal pain. Ultrasound was ordered which showed uterus MRI was ordered after the pelvic ultrasound which confirmed large heterogeneous mass in the pelvics measuring 19.8 centimeters likely pedunculated subserosal leiomyoma arising from the fundus of the uterus. Patient reports her menses are regular. 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 [facility] Location: Quality: Severity: Duration: Worsening/improving sympt: Pain level/ Scale: Timing: Associated symptoms: Past Medical Hx: Past Medical History: Diagnosis Date Condyloma acuminatum Gastroesophageal reflux disease without esophagitis 03/16/2015 Moderate single current episode of major depressive disorder (HCC) 11/22/2016 Varicella without complication age 6 Past Surgical Hx: Past Surgical History: Procedure Laterality Date REMOVE TONSILS & ADENOIDS, UNDER 12 age 6 [facility], Social Hx: Social History Socioeconomic History Marital status: Number of children: 2 Years of education: 12 Occupational History 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: [employer] Tobacco Use Smoking status: Never Smokeless tobacco: Never Vaping Use Vaping Use: Never used Substance and Sexual Activity Alcohol use: Yes Drug use: No Sexual activity: Yes Partners: Male control/protection: Pill, Condom, Surgical Other Topics Concern Service No Blood Transfusions No Caffeine Concern No Occupational Exposure No Hobby Hazards No Sleep Concern No Stress Concern No Weight Concern No Special Diet No Back Care No Exercise No Seat Belt Yes Self-Exams Yes Social History Narrative born in [place], life long resident Social Determinants of Health Food Insecurity: No Food Insecurity (01/26/2023) Hunger Vital Sign Worried About Running Out of Food in the Last Year: Never true Ran Out of Food in the Last Year: Never true Allergy: Review of patient's allergies indicates: Allergen Reactions Doxycycline Rash Macrolides And Ketolides rash Pantoprazole Itchiness all over, hand swelling Family HX: Family History Problem Relation Age of Onset Musculo-skeletal Disorder Mother scoliosis No Past Hx Father Thyroid Disorder Father graves dz Pulmonary Fibrosis Father No Past Hx Brother Diabetes Grandmother (Maternal) Type 2- no insulin Hypertension Grandmother (Maternal) Asthma Grandfather (Maternal) Diabetes Grandfather (Maternal) Type 2- no insulin Hypertension Grandfather (Maternal) Cancer Grandmother (Paternal) unsure of what type No Known Problems Son No Known Problems Son ROS: REVIEW OF SYSTEMS CONSTITUTIONAL ROS: No change in weight, No weakness, No fatigue and No fevers, sweats, or chills PULMONARY ROS: No cough, sputum, or hemoptysis, No wheezing, No shortness or breath and No recent change in breathing CARDIOVASCULAR ROS: No chest pain, No shortness of breath, No dyspnea on exertion, No orthopnea, Noparoxysmal nocturnal dyspnea, No edema, No palpitations and No syncope BREAST ROS: No new breast lumps or masses, No severe breast pain, No nipple discharge, No recent change in shape/color and Performs self breast exam ENDOCRINE ROS; No change in wt gain, hair loss or bowel habits, malaise or fatigue. No polyuria, polyphagia polydipsia GASTROINTESTINAL ROS: No abdominal pain, No change in bowel habits, No significant heartburn, No significant change in appetite, No nausea, vomiting, diarrhea, or constipation, No hematemesis, No blood in stools or black tarry stools, No abdominal bloating or early satiety and No dysphagia GENITO-URINARY FEMALE ROS: No STDs, No dysuria, No frequency, No incontinence, No urgency and No vaginal discharge and + for irreg menses. ALL OTHERS REVIEWED AND ALL OTHERS NEGATIVE LABS: Pelvic Sonogram; Done at [facility] MRI; at [place] PHYSICAL EXAMINATION Well developed. Well nourishes white female in no acute distress Vital signs BP 120/68 | Ht 1.626 m (5' 4") | Wt 82.1 kg (181 lb) | BMI 31.07 kg/m | BSA 1.93 m HEENT : WNL LUNG: CTA bilat. No wheezes, crackles, or rales HEART; S-1, S-2; Regular ,rythm and rate . No murmurs GI; + Bowel Sounds. Non-tender. Non-distended.No guarding,rebound or costovertebral angle tenderness. No Hernias Pelvic fullness uterus is mobile uterus is about 18-20 week size. Neurologic: grossly intact Extremity: No Cyanoses, clubbing or edema. No lesions on either extremeties Psych: Alert, awake and oriented X 3. Normal gait A/P Submucous leiomyoma of uterus (Primary) Discussed treatment options with patient including hysterectomy. We have discussed using of Lupron to shrink fibroid to improve blood loss during surgery. Patient is agreeable to that. Patient has has vacation scheduled in November. Plan therefore is as follows 1. Lupron with Aygestin. At the end of completion of 3 months of Lupron we will repeat pelvic ultrasound. The patient would then be scheduled for surgery. Surgery will be total laparoscopic hysterectomy with ovarian preservation. Possible laparotomy. - Leuprolide Acetate (3 Month) (Lupron) inj 11.25 mg Other orders - Norethindrone Acetate 5 MG Oral Tablet; Take 1 Tablet by mouth in the morning. documented in this encounter Nursing Notes * Arelis Aleman LPN - 09/10/2023 9:53 AM EST Pt was seen by pcp for left sided pelvic pain Had us then need MRI fu documented in this encounter Plan of Treatment Health Maintenance Due Date Last Done Comments Hepatitis B (1 of 3 - 3-dose series) 1985 COVID-19 Vaccine ( season) 2023 12/20/2020, 11/29/2020 Depression Screening 06/11/2023 06/11/2022 Diabetes Screening 11/21/2025 11/21/2022, 1 08/11/2020, 12/05/2020, Additional history exists Pap Smear 08/14/2026 08/14/2023, 10/09/2019, 07/14/2017, Additional history exists Cervical Cancer Screening [...] of uterus- Primary documented in this encounter Additional Health Concerns Infection Onset Date Last Indicated Resolved Time ((Group A Strep) Strep pyogenes) 01/27/2023 01/28/20 23 documented as of this encounter
--- OUTSIDE RECORDS SUMMARY | 2024-01-10 02:31 | External Medical Summary | Summary of Care ---
Author Name Unknown Organization [facility] Address [address] [place] [address] Phone [phone] Care Team Providers Care Microelectronics Assembler Name Role Phone Zak Simon PA-C Primary Care Provider [phone] Reason for Visit * Reason Onset Date Comments Abnormal Test Results 08/22/2023 Encounter Details Date Type Department Care Team (Late st Contact Info) Description 08/22/2023 Telephone Family Practice [facility] [address] [place] [address] Jaycee Austin PA-C [address] [place] [address] Abnormal Test Results Allergies Active Allergy Reactions Criticality Noted Date Comments Doxycycline Rash 09/16/2019 Macrolides And Ketolides 05/06/2008 rash Pantoprazole 04/27/2018 Itchiness all over, hand swelling documented as of this encounter (statuses as of 08/22/2023) Medications Medication Sig Dispensed Refills Start Date [...] the morning. 90 Tablet 3 08/14/2023 Active documented as of this encounter (statuses as of 08/22/2023) Active Problems Problem Noted Date Diagnosed Date Acne vulgaris 06/11/2022 Moderate single current epis ode of major depressive disorder 11/22/2016 Chronic rhinitis 06/05/2014 ADVANCE DIRECTIVE INFORMATION 05/03/2005 Overview: No, Advance Directive brochure offered , patient declined. documented as of this encounter (statuses as of 08/22/2023) Resolved Problems Problem Noted Date Diagnosed Date Resolved Date Upper respiratory tract infection 01/29/2022 06/11/2022 Gastroesophageal reflux dise ase without esophagitis 03/16/2015 12/07/2020 Sinus congestion 06/05/2014 06/21/2015 Normal , first 07/08/201102/25 Condyloma acuminatum 014 Adjustment disorder with depressed mood 11/23/2013 documented as of this encounter (statuses as of 08/22/2023) Immunizations Name Administration Dates Next Due COVID-19 mRNA, LNP-s, No Pre serve, 2-Dose Series ([employer]) 12/20/2020,11/29/2020 HPV Vaccine, 4-Valent 11/18/2007,07/15/2007,04/28 Season Influenza, [...] encounter Miscellaneous Notes * Telephone Encounter - Bety Smith OSA - 08/22/2023 12:05 PM EST Hello- The radiologist discovered a significant abnormal finding today on Yue Cantu ([id number]) and asksthat you review the following report as soon as possible today. Your office or other personnel taking care of this patient will also be contacted. Study Type: US PELVIS TRANS-VAGINAL NON-OB Date of Study: 08/22/2023 IMPRESSION Abnormal soft tissue mass in the pelvis, difficult to distinguish from adjacent structures. Recommend MRI with gadolinium. Thank you, GENEVIEVE Carlos Client Service [facility] [place] The radiologist discovered a significant abnormal finding today on Yue Cantu ([id number]) and asksthat you review the following report as soon as possible today. Your office or other personnel taking care of this patient will also be contacted. Study Type: Date of Study: Thank you, GENEVIEVE Carlos Client Service [facility] Medicine [place] documented in this encounter Plan of Treatment Health Maintenance Due Date Last Done Comments Hepatitis B (1 of 3 - 3-dose series) 1985 COVID-19 Vaccine (3 - season) 2023 12/20/2020, 11/29/2020 Depression Screening 06/11/2023 [...] 01/28/20 23 documented as of this encounter Care Teams Microelectronics Assembler Relationship Specialty Start Date End Date Zak Simon PA-C [address] [place] [address] [place] [address] PCP - General Physician Consultant Rn 12/07/21 documented as of this encounter
--- OUTSIDE RECORDS SUMMARY | 2024-01-10 02:31 | External Medical Summary | Summary of Care ---
Author Name Unknown Organization [facility] Address [address] [place] [address] Phone [phone] Care Team Providers Care Gas Substation Operator Name Role Phone Zak Simon PA-C Primary Care Provider [phone]- [phone] Reason for Visit * Reason Onset Date Comments Abnormal Test Results 08/22/2023 Encounter Details Date Type Department Care Team (Late st Contact Info) Description 08/22/2023 Telephone Family Practice [facility] [address] [place] [address] Jaycee Austin PA-C [address] [place] [address] Abnormal Test Results Allergies Active Allergy Reactions [...] mRNA, LNP-s, No Pre serve, 2-Dose Series ([employer]) 12/20/2020,11/29/2020 HPV Vaccine, 4-Valent 11/18/2007,07/15/2007,04/28 Season Influenza, [...] significant abnormal finding today on Yue Cantu ([id number]) and asksthat you review the following report as soon as possible today. Your office or other personnel taking care of this patient will also be contacted. Study Type: US PELVIS TRANS-VAGINAL NON-OB Date of Study: 08/22/2023 IMPRESSION Abnormal soft tissue mass in the pelvis, difficult to distinguish from adjacent structures. Recommend MRI with gadolinium. Thank you, GENEVIEVE Carlos Client Service [facility] Diagnostic [place] The radiologist discovered a significant abnormal finding today on Yue Cantu ([id number]) and asksthat you review the following report as soon as possible today. Your office or other personnel taking care of this patient will also be contacted. Study Type: Date of Study: Thank you, GENEVIEVE Carlos Client Service [facility] Medicine [place] documented in this encounter Plan of Treatment [...] documented as of this encounter Care Teams Gas Substation Operator Relationship Specialty Start Date End Date Zak Simon PA-C [address] [place] [address] [place] [address] PCP - General Physician Explosive Operator Bomb 12/07/21 documented as of this encounter
--- OUTSIDE RECORDS SUMMARY | 2024-01-10 02:31 | External Medical Summary | Summary of Care ---
Author Name Unknown Organization [facility] Address [address] [place] [address] Phone [phone] Care Team Providers Care Falsework Builder Name Role Phone Unavailable Primary Care Provider Unavailabl e Encounter Details Date Type Department Care Team (Late st Contact Info) Description 09/23/2023 8:40 AM EST Telemedicine Family [facility] [address] [place] [address] Jaycee Austin PA-C [address] [place] [address] Mood changes* Allergies Active Allergy Reactions Criticality Noted Date Comments Doxycycline Rash 09/16/2019 Macrolides And Ketolides 05/06/2008 rash Pantoprazole 04/27/2018 Itchiness all over, hand swelling documented as of this encounter (statuses as of 09/23/2023) Medications Medication Sig Dispensed Refills Start Date [...] before bedtime. 20 Tablet 0 09/23/2023 Active Hospital, Clinic, or Other Facility Administered Medication Ordered Dose Route Frequency Start Date End Date Status Leuprolide Acetate (3 Month) (Lupron) inj 11.25 mgIndications:Submucous leiomyoma of uterus 11.25 mg IM [id number] 09/10/2023 03/08/2024 Activ e documented as of this encounter (statuses as of 09/23/2023) Active Problems Problem Noted Date Diagnosed Date Acne vulgaris 06/11/2022 Moderate single current epis ode of major depressive disorder 11/22/2016 Chronic rhinitis 06/05/2014 ADVANCE DIRECTIVE INFORMATION 05/03/2005 Overview: No, Advance Directive brochure offered , patient declined. documented as of this encounter (statuses as of 09/23/2023) Resolved Problems Problem Noted Date Diagnosed Date Resolved Date Upper respiratory tract infection 01/29/2022 06/11/2022 Gastroesophageal reflux dise ase without esophagitis 03/16/2015 12/07/2020 Sinus congestion 06/05/2014 06/21/2015 Normal , first 07/08/201102/25 Condyloma acuminatum 014 Adjustment disorder with depressed mood 11/23/2013 documented as of this encounter (statuses as of 09/23/2023) Immunizations Name Administration Dates Next Due COVID-19 mRNA, LNP-s, No Pre serve, 2-Dose Series ([employer]) 12/20/2020,11/29/2020 HPV Vaccine, 4-Valent 11/18/2007,07/15/2007,04/28 Season Influenza, [...] Progress Notes * Jaycee Austin PA-C - 09/23/2023 9:02 AM EST Images from the original note were not included. Patient location: HOME. I was in a hospital or clinic location. After connecting through televideo,patient was verified with two unique identifiers. Patient (or authorized legal representative phlebotomy services) was then informed that this was a Telemedicine visit and being conducted confidentially over secure lines. Methods to assure confidentiality were taken. Patient acknowledged consent and understanding of pr ivacy and security of the Telemedicine visit. The patient agreed to participate. History of Present Illness Yue Nathan Anderson is a 38 year old female that presents for No chief complaint on file. Patient is a 38 year old female who presents with giant fibroid ; attached to uterus. Is scheduled for a hysterectomy. Having a lot of hormonal fluctuations. Random, not daily Affecting her ability to interact with her children. Had tried vistaril in the past and it did nothing and then she couldn't function, In the past used ativan with good results. She can get episodes a couple of times a week. Usually gets at end of day Surgery is going to be after trip in beginning of December. Thinks she would just need something until surgery, Physical Exam There were no vitals filed for this visit. General: alert, healthy, no distress, well nourished, well developed, comfortable, and cooperative Head: Normocephalic, No masses, lesions, tenderness or abnormalities Eye Exam: PERRLA, extraocular movements intact, conjunctiva are pink and non- injected, sclera clear Lungs: chest symmetric with normal AP diameter, no chest deformities noted, normal respiratory rateand rhythm, diaphragmatic excursion normal I have reviewed the following results: None Assessment and Plan Mood changes (Primary) - busPIRone HCl 10 MG Oral Tablet (Buspar); Take 1 Tablet by mouth in the morning and 1 Tablet before bedtime. Wrap-Up Time: I spent a total of [...] two unique identifiers. Patient (or authorized legal representative phlebotomy services) was then informed that this was a Telemedicine visit and being conducted confidentially over secure lines. Methods to assure confidentiality were taken. Patient acknowledged consent and understanding of pr ivacy and security of the Telemedicine visit. The patient agreed to participate. documented in this encounter Plan of Treatment Health Maintenance Due Date Last Done Comments Hepatitis B (1 of 3 - 19+ 3-dose series) 2004 COVID-19 Vaccine (2022- season) 2023 12/20/2020, 11/29/2020 Depression Screening 06/11/2023 [...] as of this encounter Visit Diagnoses Diagnosis Mood changes- Primary Unspecified episodic mood disorder documented in this encounter Additional Health Concerns Infection Onset Date Last Indicated Resolved Time ((Group A Strep) Strep pyogenes) 01/27/2023 01/28/20 23 documented as of this encounter
--- OUTSIDE RECORDS SUMMARY | 2024-01-10 02:31 | External Medical Summary | Summary of Care ---
Author Name Unknown Organization [facility] Address [address] [place] [address] Phone [phone] Care Team Providers Care Sustainability Communicator Name Role Phone Zak Simon PA-C Primary Care Provider [phone]- [phone] Reason for Referral * Evaluate & Treat - Unlimited Visits (Within 30 days (routine)) - Pending Review Specialty Diagnoses / Procedures Referred By Temo samson Referred To Contact Obstetrics/Gynecology / Gynecology Obstetrics Diagnoses Uterine leiomyoma, unspecified location Jaycee Austin PA-C [address] [place] [address] Referral ID Status Reason Start Date Expiration Date Visits Requested Visits Authorized [id number] Pending Review Specialty Services Required 09/02/[phone] Question Answer Referral Priority Within 30 days (routine) Where should this appointment be scheduled? [facility] What condition is the patient being seen for? Other - large uterine fibroid Reason for Visit * Reason Onset Date Comments Appointment 09/02/2023 Encounter Details Date Type Department Care Team (Late st Contact Info) Description 09/02/2023 Telephone Family [facility] [address] [place] [address] Jaycee Austin PA-C [address] [place] [address] Appointment Allergies Active Allergy Reactions Criticality Noted Date Comments Doxycycline Rash 09/16/2019 Macrolides And Ketolides 05/06/2008 rash Pantoprazole 04/27/2018 Itchiness all over, hand swelling documented as of this encounter (statuses as of 09/04/2023) Medications Medication Sig Dispensed Refills Start Date [...] as of this encounter (statuses as of 09/04/2023) Active Problems Problem Noted Date Diagnosed Date Acne vulgaris 06/11/2022 Moderate single current epis ode of major depressive disorder 11/22/2016 Chronic rhinitis 06/05/2014 ADVANCE DIRECTIVE INFORMATION 05/03/2005 Overview: No, Advance Directive brochure offered , patient declined. documented as of this encounter (statuses as of 09/04/2023) Resolved Problems Problem Noted Date Diagnosed Date Resolved Date Upper respiratory tract infection 01/29/2022 06/11/2022 Gastroesophageal reflux dise ase without esophagitis 03/16/2015 12/07/2020 Sinus congestion 06/05/2014 06/21/2015 Normal , first 07/08/201102/25 Condyloma acuminatum 014 Adjustment disorder with depressed mood 11/23/2013 documented as of this encounter (statuses as of 09/04/2023) Immunizations Name Administration Dates Next Due COVID-19 mRNA, LNP-s, No Pre serve, 2-Dose Series ([facility] 12/20/2020,11/29/2020 HPV Vaccine, 4-Valent 11/18/2007,07/15/2007,04/28 Season Influenza, [...] encounter Miscellaneous Notes * Telephone Encounter - Moon Cobian, GENEVIEVE - 09/04/2023 3:12 PM EST Date: 09/10/2023 Status: [facility] Time: 10:00 AM Length: 30 Visit Type: SURGICAL CONSULT [[id number]] Reg Status: Verified Copay: $30.00 Provider: Wally Blackburn MD Department: TRAFFIC INCIDENT MANAGEMENT MANAGER OB [facility] Additional Resources Requested: * Telephone Encounter - Jaycee Austin PA-C - 09/02/2023 7:15 PM EST Schedule sergeant of corrections * Telephone Encounter - Teetee Araiza LPN - 09/02/2023 9:54 AM EST Called and spoke with opt. Relayed information from October. Pt voiced understanding. Pt agreeable toF/U with TRAFFIC INCIDENT MANAGEMENT MANAGER Referral pend below * Telephone Encounter - Teetee Araiza LPN - 09/02/2023 9:41 AM EST ----- Message from Jaycee Stephane Austin PA-C sent at 09/01/2023 6:36 PM EST ----- Please call and inform large uterine fibroid. Recommend consulting TRAFFIC INCIDENT MANAGEMENT MANAGER documented in this encounter Plan of Treatment Upcoming Encounters Date Type Department Care Team (Late st Contact Info) Description 09/10/2023 10:00 AM EST Office Visit Gynecology/Obstetrics [facility] [address] [place] [address] [address] Wally Blackburn MD [address] [place] [address] Scheduled Referrals Name Type Priority Associated Diagnoses Orde r Schedule TRAFFIC INCIDENT MANAGEMENT MANAGER REFERRAL OP Referral Within 30 days (routine) Uterine leiomyoma, unspecified location Ordered: 09/02/2023 Health Maintenance Due Date Last Done Comments [...] unspecified location- Primary documented in this encounter Additional Health Concerns Infection Onset Date Last Indicated Resolved Time ((Group A Strep) Strep pyogenes) 01/27/2023 01/28/20 23 documented as of this encounter Care Teams Sustainability Communicator Relationship Specialty Start Date End Date Zak Simon PA-C [facility] [address] [place] [address] PCP - General Physician Co Founder And Chairman 12/07/21 documented as of this encounter
--- OUTSIDE RECORDS SUMMARY | 2024-01-10 02:31 | External Medical Summary | Summary of Care ---
Author Name Unknown Organization [facility] Address [address] [place] [address] Phone [phone] Care Team Providers Care Press Puller Name Role Phone Unavailable Primary Care Provider Unavailabl e Reason for Visit * Precert (Within 30 days (routine)) - Authorized Specialty Diagnoses / Procedures Referred By Contac t Referred To Contact Gynecology Obstetrics Diagnoses Leiomyoma of uterus, unspecified Procedures IN LEUPROLIDE ACETATE /3.75 MG Wally Blackburn MD [address] [place] [address] Javier Novoa MD [address] [place] [address] Referral ID Status Reason Start Date Expiration Date V isits Requested Visits Authorized [id number] Authorized Precert 09/12/2023 04/09/2024 2 2 Encounter Details Date Type Department Care Team (Late st Contact Info) Description 09/17/2023 1:30 PM EST Nurse Only Gynecology/Obstetrics [facility] [address] [place] [address] Gw, Nurse Obgyn Injection [address] [place] [address] Arrived Allergies Active Allergy Reactions Criticality Noted Date Comments Doxycycline Rash 09/16/2019 Macrolides And Ketolides 05/06/2008 rash Pantoprazole 04/27/2018 Itchiness all over, hand swelling documented as of this encounter (statuses as of 09/17/2023) Medications Medication Sig Dispensed Refills Start Date [...] mgIndications:Submucous leiomyoma of uterus 11.25 mg IM [id number] 09/10/2023 03/08/2024 Activ e documented as of this encounter (statuses as of 09/17/2023) Active Problems Problem Noted Date Diagnosed Date Acne vulgaris 06/11/2022 Moderate single current epis ode of major depressive disorder 11/22/2016 Chronic rhinitis 06/05/2014 ADVANCE DIRECTIVE INFORMATION 05/03/2005 Overview: No, Advance Directive brochure offered , patient declined. documented as of this encounter (statuses as of 09/17/2023) Resolved Problems Problem Noted Date Diagnosed Date Resolved Date Upper respiratory tract infection 01/29/2022 06/11/2022 Gastroesophageal reflux dise ase without esophagitis 03/16/2015 12/07/2020 Sinus congestion 06/05/2014 06/21/2015 Normal , first 07/08/201102/25 Condyloma acuminatum 014 Adjustment disorder with depressed mood 11/23/2013 documented as of this encounter (statuses as of 09/17/2023) Immunizations Name Administration Dates Next Due COVID-19 [...] on file documented as of this encounter Nursing Notes * Arelis Aleman LPN - 09/17/2023 2:33 PM EST Patient here for lupron 11.25mg injection. Patient doing well no complaints. Injection given IM as ordered. Patient tolerated well. Patient to follow up as directed. Patient instructed to call if anycomplications. Patient verbalized understanding of instructions given and her follow up appt for 3 months Injection site: Left Gluteus Medication Source: Dispensed stock medication documented in this encounter Plan of Treatment Health Maintenance Due Date Last Done Comments Hepatitis B (1 of 3 - 19+ 3-dose series) 2004 COVID-19 Vaccine (2022-24 season) 2023 12/20/2020, 11/29/2020 Depression Screening 06/11/2023 [...] Not on filedocumented as of this encounter Procedures Procedure Name Priority Date/Time Associated Diagnosis Comments URINE SCREEN, POINT OF CARE (ENTER/EDIT) Routine 09/17/2023 Submucous leiomyoma of uterus documented in this encounter Results * URINE SCREEN, POINT OF CARE (ENTER/EDIT) (09/17/2023) hCG Beta, Urine Negative Negative Procedural Control Valid? Yes Lot Number [id number] Expiration Date 08/24/24 Urine 09/17/2023 Wally Blackburn MD LAB POINT OF CARE TE ST ENTER/EDIT ORDERABLES documented in this encounter Visit Diagnoses Diagnosis Submucous leiomyoma of uterus- Primary documented in this encounter Administered Medications Active Administered Medications - up to 3 most recent administrations Medication Order MAR Action Action Date Dose Rate Site Leuprolide Acetate (3 Month) (Lupron) inj 11.25 mg 11.25 mg, Intramuscular, [id number], First dose on Fri09/10/23 at 1115, Last dose on Fri12/09/23 at 1115, For 2 doses Given 09/17/2023 2:34 PM EST 11.25 mg Dorsogluteal Left documented in this encounter Additional Health Concerns Infection Onset Date Last Indicated Resolved Time ((Group A Strep) Strep pyogenes) 01/27/2023 01/28/20 23 documented as of this encounter
--- OUTSIDE RECORDS SUMMARY | 2024-01-10 02:31 | External Medical Summary | Summary of Care ---
Author Name Unknown Organization [facility] Address [address] [place] [address] Phone [phone] Care Team Providers Care Crm Campaign Manager Name Role Phone Zak Simon PA-C Primary Care Provider [phone]- [phone] Reason for Referral * Precert (Within 10 days (routine)) - Authorized Specialty Diagnoses / Procedures Referred By Contsharla t Referred To Contact Radiology Diagnoses Abnormal pelvic ultrasound Procedures MRI PELVIS W WO CONTRAST Jaycee Austin PA-C [address] [facility] [place] [address] Referral ID Status Reason Start Date Expiration Date V isits Requested Visits Authorized [id number] Authorized Precert 08/26/2023 09/25/[phone] Reason for Visit * Reason Onset Date Comments Test Results 08/22/2023 Encounter Details Date Type Department Care Team (Late st Contact Info) Description 08/22/2023 Telephone General Internal Medicine [facility] [place] [address] [facility] [place] [address] Zak Simon PA-C [address] [facility] [place] [address] Test Results Allergies Active Allergy Reactions Criticality Noted Date Comments Doxycycline Rash 09/16/2019 Macrolides And Ketolides 05/06/2008 rash Pantoprazole 04/27/2018 Itchiness all over, hand swelling documented as of this encounter (statuses as of 08/29/2023) Medications Medication Sig Dispensed Refills Start Date [...] as of this encounter (statuses as of 08/29/2023) Active Problems Problem Noted Date Diagnosed Date Acne vulgaris 06/11/2022 Moderate single current epis ode of major depressive disorder 11/22/2016 Chronic rhinitis 06/05/2014 ADVANCE DIRECTIVE INFORMATION 05/03/2005 Overview: No, Advance Directive brochure offered , patient declined. documented as of this encounter (statuses as of 08/29/2023) Resolved Problems Problem Noted Date Diagnosed Date Resolved Date Upper respiratory tract infection 01/29/2022 06/11/2022 Gastroesophageal reflux dise ase without esophagitis 03/16/2015 12/07/2020 Sinus congestion 06/05/2014 06/21/2015 Normal , first 07/08/201102/25 Condyloma acuminatum 014 Adjustment disorder with depressed mood 11/23/2013 documented as of this encounter (statuses as of 08/29/2023) Immunizations Name Administration Dates Next Due COVID-19 mRNA, LNP-s, No Pre serve, 2-Dose Series ([employer] 12/20/2020,11/29/2020 HPV Vaccine, 4-Valent 11/18/2007,07/15/2007,04/28 Season Influenza, [...] encounter Miscellaneous Notes * Telephone Encounter - Brittany Cobian OSA - 08/29/2023 11:32 AM EST Pt is scheduled for tomorrow at * Telephone Encounter - Jaycee Austin PA-C - 08/25/2023 6:51 PM EST Called and spoke with patient. Agreeable to mri of pelvis Please schedule. * Telephone Encounter - Mi Parisi LPN - 08/25/2023 3:33 PM EST Please review. * Telephone Encounter - Brittany Bagley OSA - 08/22/2023 11:31 AM EST Radiology calling in regards to pt's abnormal pelvic ultrasound. Please call radiology back today at [phone] documented in this encounter Plan of Treatment Upcoming Encounters Date Type Department Care Team (Late st Contact Info) Description 08/30/2023 1:00 PM EST Imaging Radiology [address] [place] [address] Scheduled Orders Name Type Priority Associated Diagnoses Orde r Schedule MRI PELVIS W WO CONTRAST Medical Imaging Routine Abnormal pelvic ultrasound Expected: 08/25/2023 (Approximate), Expires: 09/24/2024 Health Maintenance Due Date Last Done Comments [...] as of this encounter Visit Diagnoses Diagnosis Abnormal pelvic ultrasound- Primary Nonspecific (abnormal) findings on radiological and other examination of genitourinary organs documented in this encounter Additional Health Concerns Infection Onset Date Last Indicated Resolved Time ((Group A Strep) Strep pyogenes) 01/27/2023 01/28/20 23 documented as of this encounter Care Teams Crm Campaign Manager Relationship Specialty Start Date End Date Zak Simon PA-C [address] [place] [address] [place] [address] PCP - General Physician Administrator Pesticide 12/07/21 documented as of this encounter
--- OUTSIDE RECORDS SUMMARY | 2024-01-10 02:31 | External Medical Summary | Summary of Care ---
Author Name Unknown Organization [facility] Address [address] [place] [address] Phone [phone] Care Team Providers Care Fashion Consultant Name Role Phone Zak Simon PA-C Primary Care Provider [phone]- [phone] Reason for Visit * Reason Comments PAP Encounter Details Date Type Department Care Team (Late st Contact Info) Description 08/14/2023 6:00 PM EST Office Visit Family Practice [facility] [address] [place] [address] Jaycee Austin PA-C [address] [facility] [place] [address] Well adult exam*; Screening for cervical cancer; Moderate single current episode of major depressive disorder (HCC); Pelvic pain in female Allergies Active Allergy Reactions Criticality Noted Date Comments Doxycycline Rash 09/16/2019 Macrolides And Ketolides 05/06/2008 rash Pantoprazole 04/27/2018 Itchiness all over, hand swelling documented as of this encounter (statuses as of 08/28/2023) Medications Medication Sig Dispensed Refills Start Date [...] the morning. 90 Tablet 3 08/14/2023 Active Sertraline HCl 100 MG Oral Tablet (Zoloft)Indicatio ns:Moderate single current episode of major depressive disorder (HCC) Take 1 Tablet by mouth in the morning. 90 Tablet 3 08/07/2022 08/14/2023 Discontinue d(Refill) documented as of this encounter (statuses as of 08/28/2023) Active Problems Problem Noted Date Diagnosed Date Acne vulgaris 06/11/2022 Moderate single current epis ode of major depressive disorder 11/22/2016 Chronic rhinitis 06/05/2014 ADVANCE DIRECTIVE INFORMATION 05/03/2005 Overview: No, Advance Directive brochure offered , patient declined. documented as of this encounter (statuses as of 08/28/2023) Resolved Problems Problem Noted Date Diagnosed Date Resolved Date Upper respiratory tract infection 01/29/2022 06/11/2022 Gastroesophageal reflux dise ase without esophagitis 03/16/2015 12/07/2020 Sinus congestion 06/05/2014 06/21/2015 Normal , first 07/08/201102/25 Condyloma acuminatum 014 Adjustment disorder with depressed mood 11/23/2013 documented as of this encounter (statuses as of 08/28/2023) Immunizations Name Administration Dates Next Due COVID-19 mRNA, LNP-s, No Pre serve, 2-Dose Series ([employer]) 12/20/2020,11/29/2020 HPV Vaccine, 4-Valent 11/18/2007,07/15/2007,04/28 Season Influenza, [...] Sign Reading Time Taken Comments Blood Pressure 102/74 08/14/2023 5:59 PM EST Pulse 80 08/14/2023 5:59 PM EST Temperature 37.3 C (99.1 F) 08/14/2023 5:59 PM ES T Respiratory Rate 16 08/14/2023 5:59 PM EST Oxygen Saturation 97% 08/14/2023 5:59 PM EST Inhaled Oxygen Concentration - - Weight 80.7 kg (178 lb) 08/14/2023 5:59 PM EST Height - - Body Mass Index 30.55 03/13/2023 8:15 AM EDT documented in this encounter Progress Notes * Jaycee Austin PA-C - 08/14/2023 6:16 PM EST Yue Nathan Cantu is a 38 year old female who presents for an annual check-up. Current concerns: Has a lot of stress with trying to combine families with getting remarried. Working on reducing zolfot due to orgasm issues. Pain in left ovary; was more random. Has become more consistent until last week. Concerns with cysts or possible constipation. Appetite good Sleep good Urination good Bowel movements some constipaiton Menses regular, duration 4-5 days. Mild cramping Past Medical History: Diagnosis Date Condyloma acuminatum Gastroesophageal reflux disease without esophagitis 03/16/2015 Moderate single current episode of major depressive disorder (HCC) 11/22/2016 Varicella without complication age 6 Past Surgical History: Procedure Laterality Date REMOVE TONSILS & ADENOIDS, UNDER 12 age 6 [facility], Current Outpatient Medications Medication Sig Dispense Refill fluticasone (FLONASE) 50 MCG/ACT nasal spray Administer 2 Sprays into each nostril daily. 1 Bottle 11 Multivitamin Adult Oral Tablet Chewable Take by mouth. Retin-A 0.025 % External Cream Apply topically to affected area at bedtime. Apply to face 45 g 5 buPROPion HCl ER (XL) 150 MG Oral Tablet Extended Release 24 Hour (Wellbutrin XL) Take 1 Tablet by mouth in the morning. 30 Tablet 5 Sertraline HCl 100 MG Oral Tablet (Zoloft) Take 1 Tablet by mouth in the morning. 90 Tablet 3 No current facility-administered medications for this visit. 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 Comment: [employer] Tobacco Use Smoking status: Never Smokeless [...] Self-Exams Yes Social History Narrative born in [place], life long resident Social Determinants of Health [...] on file Housing Stability: Not on file Family History Problem Relation Age of Onset Musculo-skeletal Disorder Mother scoliosis No Past Hx Father Thyroid Disorder Father graves dz No Past Hx Brother Asthma Grandfather (Maternal) Diabetes Grandfather (Maternal) Type 2- no insulin Hypertension Grandfather (Maternal) Cancer Grandmother (Paternal) unsure of what type Diabetes Grandmother (Maternal) Type 2- no insulin Hypertension Grandmother (Maternal) No Known Problems Son No Known Problems Son Review Of Systems Skin: negative Eyes: negative Ears/Nose/Throat: negative Respiratory: negative Cardiovascular: negative Gastrointestinal: negative Genitourinary: negative Musculoskeletal: pt denies significant joint pain or stiffness Neurologic: negative Psychiatric: anxiety, depression, and sexual difficulties Hematologic/Lymphatic/Immunologic: negative Endocrine: negative Gynecologic:No LMP recorded., PHYSICAL EXAMINATION: BP 102/74 | Pulse 80 | Temp 37.3 C (99.1 F) (Tympanic) | Resp 16 | Wt 80.7 kg (178 lb) | SpO2 97% | BMI 30.55 kg/m | BSA 1.91 m General appearance - well nourished, comfortable. Skin - no rashes or lesions suspicious for malignancy. Head - without deformity, mass, or tenderness. Eyes - conjuctiva clear, EOMI, nondilated limited fundoscopic exam without obvious pathology. Ears - canals clear, TMs normal. Nose/Sinuses - normal mucosa without mass. Oropharynx -no oral lesions. Neck - normal ROM, supple, without adenopathy, thyromegaly, or bruit. Back - without deformity or tenderness. Lungs - symmetric and full breath sounds without rales, rhonchi, or wheezes. Heart - normal precordial impulse, PMI nondisplaced, normal S1,S2, without murmurs, rubs, or gallops. carotid upstrokes 2/4 without bruit. Breasts - symmetric, no masses or tenderness, axillae negative. Abdomen - nondistended, no organomegaly, nontender to palpation,bowel sounds active. Extremities - no cyanosis, clubbing, or edema. Musculoskeletal - joints without restriction in range of motion or deformity. Peripheral pulses - symmetric and intact. Neuro - normal gait and station, without tremor, symmetric motor strength, DTRs symmetric. Pelvic-external genitalia without lesion. speculum exam revealed Vagina/cervix clear, mucosa pink. bimanual exam unremarkable for masses or tenderness. ASSESSMENT/PLAN: (Z12.4) Screening for cervical cancer Plan: NAPPING MACHINE OPERATOR PAP SCREEN (F32.1) Moderate single current episode of major depressive disorder (HCC) Plan: Sertraline HCl 100 MG Oral Tablet (Zoloft) Well adult exam (Primary) Screening for cervical cancer - NAPPING MACHINE OPERATOR PAP SCREEN; Future; Expected date: 08/14/2023 - NAPPING MACHINE OPERATOR PAP SCREEN Moderate single current episode of major depressive disorder (HCC) - Sertraline HCl 100 MG Oral Tablet (Zoloft); Take 1 Tablet by mouth in the morning. Pelvic pain in female - US PELVIS TRANS-VAGINAL NON-OB; Future; Expected date: 08/15/2023 - US PELVIS TRANS-ABDOMINAL; Future; Expected date: 08/15/2023 Check-out note: Schedule us Diet and exercise discussed. Continue current medications. documented in this encounter Nursing Notes * Ambika Mosre LPN - 08/14/2023 5:59 PM EST Patient presents for routine pap smear. Says she's been having pain in what she believes is her left ovary. The pain comes and goes but first started about a year ago. No known history of ovarian cysts. She says it was pretty persistent for the month of June. documented in this encounter Miscellaneous Notes * Result Encounter Note - Jaycee Austin PA-C - 08/21/2023 7:37 PM EST Please send a lab letter stating pap smear results are normal. documented in this encounter Plan of Treatment Upcoming Encounters Date Type Department Care Team (Late st Contact Info) Description 08/30/2023 1:00 PM EST Imaging Radiology [address] [place] [address] Health Maintenance Due Date Last Done Comments Hepatitis B (1 of 3 - 3-dose series) 1985 COVID-19 Vaccine (3 - 2022- season) 2023 12/20/2020, 11/29/2020 Depression Screening 06/11/2023 [...] Procedure Name Priority Date/Time Associated Diagnosis Comments HUMAN PAPILLOMA VIRUS, PROBE Routine 08/14/2023 6:40 PM EST Screening for cervical cancer NAPPING MACHINE OPERATOR PAP SCREEN Routine 08/14/2023 6:40 PM EST Screening for cervical cancer documented in this encounter Results * US PELVIS TRANS-ABDOMINAL (08/22/2023 10:11 AM EST) Anatomical Region Laterality Modality Pelvis, Body Ultrasound 08/22/2023 10:3 2 AM EST Impressions 08/22/2023 10:30 AM EST IMPRESSION Abnormal soft tissue mass in the pelvis, difficult to distinguish from adjacent structures. Recommend MRI with gadolinium. Narrative 08/22/2023 10:30 AM EST EXAM US PELVIS TRANS-VAGINAL NON-OB; US PELVIS TRANS-ABDOMINAL - 08/22/2023 10:11 am HISTORY left sided pelvic pain TECHNIQUE Real-time transabdominal and transvaginal ultrasound of the pelvis was performed. COMPARISON None. FINDINGS The uterus measures 10.4 x 4.5 x 5.6 cm and is enlarged and homogeneous in echotexture. Endometrium measures 5-6 mm. The right ovary measures 2.3 x 2 x 2.8 cm and is unremarkable. Left ovary not definitively identified. There is abnormal large amount of soft tissue in the pelvis, difficult to accurately measure and distinguish from adjacent uterus and underlying left ovary. There is no free fluid in the cul-de-sac. Procedure Note Crispin Simms MD - 08/22/2023 EXAM US PELVIS TRANS-VAGINAL NON-OB; US PELVIS TRANS-ABDOMINAL - 0:11 am HISTORY left sided pelvic pain TECHNIQUE Real-time transabdominal and transvaginal ultrasound of the pelvis wasperformed. COMPARISON None. FINDINGS The uterus measures 10.4 x 4.5 x 5.6 cm and is enlarged and homogeneous inechotexture. Endometrium measures 5-6 mm. The right ovary measures 2.3 x 2 x 2.8 cm and is unremarkable. Left ovarynot definitively identified. There is abnormal large amount of soft tissue in the pelvis, difficult toaccurately measure and distinguish from adjacent uterus and underlyingleft ovary. There is no free fluid in the cul-de-sac. IMPRESSION IMPRESSION Abnormal soft tissue mass in the pelvis, difficult to distinguish fromadjacent structures. Recommend MRI with gadolinium. Jaycee CALVERT ULTRASOUND * US PELVIS TRANS-VAGINAL NON-OB (08/22/2023 10:11 AM EST) Anatomical Region Laterality Modality Pelvis, Body Ultrasound 08/22/2023 10:3 2 AM EST Impressions 08/22/2023 10:30 AM EST IMPRESSION Abnormal soft tissue mass in the pelvis, difficult to distinguish from adjacent structures. Recommend MRI with gadolinium. Narrative 08/22/2023 10:30 AM EST EXAM US PELVIS TRANS-VAGINAL NON-OB; US PELVIS TRANS-ABDOMINAL - 08/22/2023 10:11 am HISTORY left sided pelvic pain TECHNIQUE Real-time transabdominal and transvaginal ultrasound of the pelvis was performed. COMPARISON None. FINDINGS The uterus measures 10.4 x 4.5 x 5.6 cm and is enlarged and homogeneous in echotexture. Endometrium measures 5-6 mm. The right ovary measures 2.3 x 2 x 2.8 cm and is unremarkable. Left ovary not definitively identified. There is abnormal large amount of soft tissue in the pelvis, difficult to accurately measure and distinguish from adjacent uterus and underlying left ovary. There is no free fluid in the cul-de-sac. Procedure Note Crispin Simms MD - 08/22/2023 EXAM US PELVIS TRANS-VAGINAL NON-OB; US PELVIS TRANS-ABDOMINAL - 0:11 am HISTORY left sided pelvic pain TECHNIQUE Real-time transabdominal and transvaginal ultrasound of the pelvis wasperformed. COMPARISON None. FINDINGS The uterus measures 10.4 x 4.5 x 5.6 cm and is enlarged and homogeneous inechotexture. Endometrium measures 5-6 mm. The right ovary measures 2.3 x 2 x 2.8 cm and is unremarkable. Left ovarynot definitively identified. There is abnormal large amount of soft tissue in the pelvis, difficult toaccurately measure and distinguish from adjacent uterus and underlyingleft ovary. There is no free fluid in the cul-de-sac. IMPRESSION IMPRESSION Abnormal soft tissue mass in the pelvis, difficult to distinguish fromadjacent structures. Recommend MRI with gadolinium. Jaycee Austin PA-C RAD ULTRASOUND * HUMAN PAPILLOMA VIRUS, PROBE (08/14/2023 6:40 PM EST) Human Papilloma Virus Result Negative Not Applicable 08/21/2023 11:56 AM EST LABORATORY [facility] Comment: No high/intermediate-risk Human Papillomavirus (HPV E6/E7 messenger RNA) detected by nucleic acid amplification. This assay looks for high/intermediate risk Human Papillomavirus (HPV E6/E7 messenger RNA) by nucleic acid amplification. This assay includes the qualitative detection of HPV types 16,18,31,33,35,39,45,51,52,56,58,59,66 and 68 from cervical specimens. This assay has been FDA cleared for Thin prep collection vials. This assay has not been approved for use as a primary screening test for HPV and should be tested in conjunction with a PAP screen. If collected utilizing a Surepath vial, the collection and specimen preparation of this test was developed, and its performance characteristics determined by [employer]. It has not been cleared or approved by the U.S. Food and Drug Administration (FDA). The FDA has determined that such clearance or approval is not necessary. [facility], [address] [place] [address]. [address]. Pap Test Specimen from wound / Unknown 08/14/2023 6:40 PM EST 08/18/2023 5:39 PM EST October Geovanna IVAN LAB MICRO - GENERAL ORDERABLES Performing Organization Address City/State/[facility] Co de Phone Number LABORATORY [address] [address] * NAPPING MACHINE OPERATOR PAP SCREEN (08/14/2023 6:40 PM EST) Final Diagnosis A. Cervix, SurePath Pap test: Adequacy: Satisfactory for evaluation; no transformation zone component identified. Interpretation: Negative for Intraepithelial lesion or malignancy ([place] System). AUTOMATED REVIEW: Focal Point computerized screening device (quintile 5, review). 08/21/2023 11:56 AM EST LAB[facility]ATORY [facility] Performing Labs Doctor Of Veterinary Medicine screening performed at [facility] ([facility] [address] [place] [address]. 08/21/2023 11:56 AM EST LAB[facility]ATORY [facility] Gross Description A. Cervix. SurePath vial received labeled with the patient's identification. 08/21/2023 11:56 AM EST LAB[facility]ATORY [facility] EDUCATIONAL NOTE: The Pap test (thin-layer cervical screening specimen) is a screening test that aids in the detection of cervical cancer and cancer precursors. Both false positive and false negative results can occur. The test should be used at regular intervals (as per the ASCCP guidelines) and positive results should be confirmed before definitive therapy. Discrepancies between the Pap test findings and clinical impressions should be resolved with diagnostic tests such as colposcopy and biopsy. 08/21/2023 11:56 AM EST LABORATORY [facility] Case Report Gynecologic Cytology Report Case: [id number] Authorizing Provider: Jaycee Austin PA-C Collected: 08/14/2023 06:40 PM Ordering Location: [facility] Received: 08/15/2023 11:59 AM [facility] [place] First Screen: Charmaine Leal CT(ASCP) Specimen: SurePath Pap test, Cervix 08/21/2023 11:56 AM EST LAB[facility]ATORY [facility] PAP Indication for Procedure: Routine Pap 08/21/2023 11:56 AM EST LAB[facility]AT[facility] PAP Previous Cancer: None 08/21/2023 11:56 AM EST LAB[facility]AT[facility] HPV Permissions: HPV Regardless (Including cotest) 08/21/2023 11:56 AM EST LAB[facility] PAP Contraceptive History: None 08/21/2023 11:56 AM EST [facility] PAP Menstrual Status: Pre-menopausal 08/21/2023 11:56 AM EST [facility] Pap Test Specimen from wound / Unknown 08/14/2023 6:40 PM EST 08/15/2023 11:59 AM EST Jaycee Austin PA-C LAB CYTOLOGY ORDERAB LES Performing Organization Address City/State/[facility] Co de Phone Number LABORATORY [facility] [address] [place] [address] documented in this encounter Visit Diagnoses Diagnosis Well adult exam- Primary Routine general medical examination at a health care facility Screening for cervical cancer Screening for malignant neoplasm of the cervix Moderate single current episode of major depressive disorder (HCC) Pelvic pain in female Unspecified symptom associated with female genital organs Pelvic pain in female Unspecified symptom associated with female genital organs documented in this encounter Additional Health Concerns Infection Onset Date Last Indicated Resolved Time ((Group A Strep) Strep pyogenes) 01/27/2023 01/28/20 23 documented as of this encounter Care Teams Fashion Consultant Relationship Specialty Start Date End Date Zak Simon PA-C [address] [facility] [place], [place] [address] PCP - General Physician Buttonhole Maker Hand 12/07/21 documented as of this encounter"
--- OUTSIDE RECORDS SUMMARY | 2024-01-10 02:31 | External Medical Summary | Summary of Care ---
Author Name Unknown Organization [facility] Address [address] [place] [address] Phone [phone] Care Team Providers Care Explosives Mixer Operator Name Role Phone Zak Simon PA-C Primary Care Provider +1- [phone] Reason for Visit * Reason Onset Date Comments Appointment 08/29/2023 Encounter Details Date Type Department Care Team (Late st Contact Info) Description 08/29/20[address]phone [address] [facility] [place] [id number] Talita Conner TECH Appointment Allergies Active Allergy Reactions Criticality Noted [...] mRNA, LNP-s, No Pre serve, 2-Dose Series ([employer]) 12/20/2020,11/29/2020 HPV Vaccine, 4-Valent 11/18/2007,07/15/2007,04/28 Season Influenza, [...] encounter Miscellaneous Notes * Telephone Encounter - Talita Conner TECH - 08/29/2023 3:53 PM EST Name: Yue Cantu Do you have any of the following: Pacemaker, stents, heart valves, aneurysm clips? No Have you ever worked with metal or have you ever gotten metal in your eyes? No Have you had a colonoscopy in the last 30 days? No On dialysis? No Do you have any dermals or body piercing's? No or ? no Do you wear an insulin pump or diabetic monitor? No No new tattoos VINCENT Nixon documented in this encounter Plan of Treatment Upcoming Encounters Date Type Department Care Team (Late st Contact Info) Description 08/30/2023 1:00 PM EST Imaging Radiology [address] [place] [address] Health Maintenance Due Date Last Done [...] documented as of this encounter Care Teams Explosives Mixer Operator Relationship Specialty Start Date End Date Zak Simon PA-C [address] [place] [address] PCP - General Physician Thermite Welder 12/07/21 documented as of this encounter
--- OUTSIDE RECORDS SUMMARY | 2024-01-10 02:32 | External Medical Summary | Summary of Care ---
Author Name Unknown Organization [facility] Address [address] [place] [address] Phone [phone] Care Team Providers Care Personal Care Service Provider Name Role Phone Zak Simon PA-C Primary Care Provider [phone]- [phone] Encounter Details Date Type Department Care Team (Late st Contact Info) Description 07/08/2023 11:00 AM EST Nurse Only Pediatrics [facility] [address] [place] [address] [facility], Nurse Raffi [facility] [address] [place] [address] No Show Allergies Active Allergy Reactions Criticality Noted Date Comments Doxycycline Rash 09/16/2019 Macrolides And Ketolides 05/06/2008 rash Pantoprazole 04/27/2018 Itchiness all over, hand swelling documented as of this encounter (statuses as of 07/16/2023) Medications Medication Sig Dispensed Refills Start Date [...] in the morning. 90 Tablet 3 08/07/2022 Active buPROPion HCl ER (XL) 150 MG Oral Tablet Extended Release 24 Hour (Wellbutrin XL) Take 1 Tablet by mouth in the morning. 30 Tablet 5 05/07/2023 Active documented as of this encounter (statuses as of 07/16/2023) Active Problems Problem Noted Date Diagnosed Date Acne vulgaris 06/11/2022 Moderate single current epis ode of major depressive disorder 11/22/2016 Chronic rhinitis 06/05/2014 ADVANCE DIRECTIVE INFORMATION 05/03/2005 Overview: No, Advance Directive brochure offered , patient declined. documented as of this encounter (statuses as of 07/16/2023) Resolved Problems Problem Noted Date Diagnosed Date Resolved Date Upper respiratory tract infection 01/29/2022 06/11/2022 Gastroesophageal reflux dise ase without esophagitis 03/16/2015 12/07/2020 Sinus congestion 06/05/2014 06/21/2015 Normal , first 07/08/201102/25 Condyloma acuminatum 014 Adjustment disorder with depressed mood 11/23/2013 documented as of this encounter (statuses as of 07/16/2023) Immunizations Name Administration Dates Next Due COVID-19 mRNA, LNP-s, No Pre serve, 2-Dose Series (MY[employer]Y) 12/20/2020,11/29/2020 HPV Vaccine, 4-Valent 11/18/2007,07/15/2007,04/28 Season Influenza, [...] on file documented as of this encounter Plan of Treatment Health Maintenance Due Date Last Done Comments Hepatitis B (1 of 3 - 3-dose series) 1985 HPV/Co-Test 2015 COVID-19 Vaccine ( season) 2023 12/20/2020, 11/29/2020 Cervical Cancer Screening 05/19/2023 Pap Smear 05/19/2023 05/19/2020, 06/27, 07/14/2017, Additional history exists Depression Screening 06/11/2023 06/11/2022 Diabetes Screening 11/21/2025 11/21/2022, 1 08/11/2020, 12/05/2020, Additional history exists DTaP,Tdap,and Td Vaccines (3 - Td or [...] documented as of this encounter Care Teams Personal Care Service Provider Relationship Specialty Start Date End Date Zak Simon PA-C [address] [facility] [place] [address] PCP - General Physician Book Binder 12/07/21 documented as of this encounter
--- OUTSIDE RECORDS SUMMARY | 2024-01-10 02:32 | External Medical Summary | Summary of Care ---
Author Name Unknown Organization [facility] Address [address] [place] [address] Phone [phone] Care Team Providers Care Line Assembler Aircraft Name Role Phone Zak Simon PA-C Primary Care Provider [phone] Reason for Visit * Reason Comments PAP Encounter Details Date Type Department Care Team (Late st Contact Info) Description 08/14/2023 6:00 PM EST Office Visit Family Practice [facility] [address] [place] [address] Jaycee Austin PA-C [address] [place] [address] Well adult exam*; Screening for cervical cancer; Moderate single current episode of major depressive disorder (HCC); Pelvic pain in female Allergies Active Allergy Reactions Criticality Noted Date Comments Doxycycline Rash 09/16/2019 Macrolides And Ketolides 05/06/2008 rash Pantoprazole 04/27/2018 Itchiness all over, hand swelling documented as of this encounter (statuses as of 08/14/2023) Medications Medication Sig Dispensed Refills Start Date [...] as of this encounter (statuses as of 08/14/2023) Active Problems Problem Noted Date Diagnosed Date Acne vulgaris 06/11/2022 Moderate single current epis ode of major depressive disorder 11/22/2016 Chronic rhinitis 06/05/2014 ADVANCE DIRECTIVE INFORMATION 05/03/2005 Overview: No, Advance Directive brochure offered , patient declined. documented as of this encounter (statuses as of 08/14/2023) Resolved Problems Problem Noted Date Diagnosed Date Resolved Date Upper respiratory tract infection 01/29/2022 06/11/2022 Gastroesophageal reflux dise ase without esophagitis 03/16/2015 12/07/2020 Sinus congestion 06/05/2014 06/21/2015 Normal , first 07/08/201102/25 Condyloma acuminatum 014 Adjustment disorder with depressed mood 11/23/2013 documented as of this encounter (statuses as of 08/14/2023) Immunizations Name Administration Dates Next Due COVID-19 mRNA, LNP-s, No Pre serve, 2-Dose Series ([employer]) 12/20/2020,11/29/2020 HPV Vaccine, 4-Valent 11/18/2007,07/15/2007,04/28 Season Influenza, [...] level: Not on file Occupational History 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: [employer] Tobacco Use Smoking status: Never Smokeless [...] Self-Exams Yes Social History Narrative born in [place], life long resident Social Determinants of Health [...] ASSESSMENT/PLAN: (Z12.4) Screening for cervical cancer Plan: CLINICAL HAEMATOLOGIST PAP SCREEN (F32.1) Moderate single current episode of major depressive disorder (HCC) Plan: Sertraline HCl 100 MG Oral Tablet (Zoloft) Well adult exam (Primary) Screening for cervical cancer - CLINICAL HAEMATOLOGIST PAP SCREEN; Future; Expected date: 08/14/2023 - CLINICAL HAEMATOLOGIST PAP SCREEN Moderate single current episode of [...] in this encounter Nursing Notes * Ambika Morse LPN - 08/14/2023 5:59 PM EST Patient presents for routine pap smear. Says she's been having pain in what she believes is her left ovary. The pain comes and goes but first started about a year ago. No known history of ovarian cysts. She says it was pretty persistent for the month of June. documented in this encounter Plan of Treatment Upcoming Encounters Date Type Department Care Team (Late st Contact Info) Description 08/22/2023 9:15 AM EST Imaging Radiology [address] [place] [address] 08/22/2023 10:30 AM EST Imaging Radiology [facility] [address] [place] [address] Scheduled Orders Name Type Priority Associated Diagnoses Orde r Schedule CLINICAL HAEMATOLOGIST PAP SCREEN Pathology Routine Screening for cervical cancer Expected: 08/14/2023, Expires: 09/14/2024 PELVIS TRANS-VAGINAL NON-OB Medical Imaging Routine Pelvic pain in female Expected: 08/15/2023, Expires: 09/14/2024 US PELVIS TRANS-ABDOMINAL Medical Imaging Routine Pelvic pain in female Expected: 08/15/2023, Expires: 09/14/2024 Health Maintenance Due Date Last Done Comments [...] as of this encounter Visit Diagnoses Diagnosis Well adult [...] documented as of this encounter Care Teams Line Assembler Aircraft Relationship Specialty Start Date End Date Zak Simon PA-C [address] [place] [address] [place] [address] PCP - General Physician Line Painting Machine Operator 12/07/21 documented as of this encounter"
--- OUTSIDE RECORDS SUMMARY | 2024-01-10 02:32 | External Medical Summary ---
Author Name Unknown Address Unknown Organization K01:[facility] [address] [facility] [address] Laboratory Report Ordering Provider Test Date Status 08/14/2023 18:40:00 Final Observation Date Value Abnormality Reference (Units ) Status Human papilloma virus E6+E7 mRNA [Presence] in Cervix by SAMANTHA with probe detection 08/14/2023 18:40:00 Negative Not Applicable Final No high/intermediate-risk Hu man Papillomavirus (HPV E6/E7 messenger RNA) detected by [...] developed, and its performance characteristics determined by [facility]. It has not been cleared or approved by the U.S. Food and Drug Administration (FDA). The FDA has determined that such clearance or approval is not necessary.
This assay has been performed at [facility], [address] [place] [address], [place]. [address]. Performing Location [facility] [address] [facility] [address]
[2024-01-10 07:30] LABS: Basophils # (auto) 0.03 K/uL (0.00-0.20); Basophils % (auto) 0.2 %; Eosinophils # (auto) 0.01 K/uL (0.00-0.50); Eosinophils % (auto) 0.1 %; Hematocrit (blood only) 39.3 % (37.0-47.0); Hemoglobin 13.4 g/dl (12.0-16.0); Immature Granulocytes # (auto) 0.08 K/uL (0.01-0.20); Immature Granulocytes % (auto) 0.6 %; Lymphocytes % (auto) 19.9 %; Mean Corpuscular Hemoglobin 31.3 pg (25.0-34.0); Mean Corpuscular Hgb Conc 34.1 g/dL (32.0-36.0); Mean Corpuscular Volume 91.8 fL (80.0-100.0); Monocytes # (auto) 0.77 K/uL (0.11-0.59); Monocytes % (auto) 5.7 %; Neutrophils # (auto) 9.95 K/uL (1.40-6.50); Neutrophils % (auto) 73.5 %; Platelet Count 256 K/uL (130-400); RDW Coefficient of Variation 11.7 % (11.5-14.5); RDW Standard Deviation 39.5 fL (36.4-46.3); Red Blood Count 4.28 M/uL (4.20-5.40); White Blood Count 13.54 K/ul (4.8-10.8)
[2024-01-10 07:56] LABS: BUN Creatinine Ratio 10.3 (10-20); Calcium 8.5 mg/dl (8.6-10.3); Creatinine Clr Calc Pharmacy 100.3 ml/min; Est GFR (African American) 111.8 ml/min; Est GFR (Non-African American) 96.4 ml/min; Potassium 3.8 mmol/L (3.5-5.1)
[2024-01-10] MEDS: IBUPROFEN 600 MG TAB PO PRN (08:24)
--- NOTE | 2024-01-10 09:39 | Progress Note ---
Date of Service January 10, 2024 Assessment & Plan (1) Fibroid uterus: Plan: Pt doing well No complaints d/c home with instructions l Admission and Anticipated Discharge Date Admission Date: January 09, 2024 Results & Data Vital Signs (Past 12 Hours) Vital Signs Temp Pulse Resp BP Pulse Ox O2 Del Method 01/10/24 02:49 36.6 C 83 18 135/74 98 Room Air 01/09/24 22:29 37 C 90 16 110/59 L 98 Room Air
--- NOTE | 2024-01-10 10:03 | Discharge Summary ---
Date of Service January 10, 2024 Discharge Data Procedures Performed Operation Date: 01/09/24 09:20 Actual Procedures p Total Laparoscopic Hysterectomy, Bilateral Salpingectomy and Cystoscopy(Not Applicable) - Wally Blackburn MD
--- NOTE | 2024-01-10 10:04 | Discharge Summary ---
Date of Service January 10, 2024 Admission HPI Per Admitting Provider As per HPI Discharge Data Procedures Performed Operation Date: 01/09/24 09:20 Actual Procedures p Total Laparoscopic Hysterectomy, Bilateral Salpingectomy and Cystoscopy(Not Applicable) - Wally Blackburn MD Hospital Course (1) Postop check: Post op course was unremarkable and pt is discharges home in stable condition. Discharge instructions including medications,diet, activity and follow up appointments are reviewed with pt. (2) Fibroid uterus:
[2024-01-10] MEDS: ACETAMINOPHEN 325 MG TAB PO PRN (10:07)
== END 2024-01-10 13:44 | disposition home health service (06) ==
LOC: 4E1 07:43 → ASU 07:43